=== PATIENT | male | born 1965 | race Caucasian/White ===

== ENCOUNTER 2016-09-02 08:04 | Inpatient (IN) ==
[2016-09-02] MEDS ORDERED: predniSONE 20 MG TABLET PO ONE (08:26)
--- NOTE | 2016-09-02 08:35 | History & Physical Report ---
Date of Encounter: 09/02/16 Time of Encounter: 08:34 24 Hour HP Update - Instructions Instructions: If the History and Physical is less than 30 days old and was completed prior to A.M. admission and or procedure and has NOT been updated on calendar day of procedure please complete this update prior to performing procedure. - Update Patient reports changes in Medical Condition: No Changes in assessment/condition: No Changes in Medication: No Preop tests/diagnostics Reviewed: Yes Surgery Remains Indicated: Yes Consent for Planned Operative Procedure(s) Verified: Yes - Pre-Operative Checklist Preoperative Checklist Indicated: Yes Prophylactic Antibiotic Ordered: No Home Medications Include Beta Dacia: Yes Beta Dacia Taken Today (Day of Surgery): Yes Beta Dacia Taken Yesterday (Day Prior to Surgery): Yes Is VTE Prophylaxis Indicated?: NO
--- NOTE | 2016-09-02 08:37 | Pre-Sedation Evaluation ---
Pre-sedation evaluation - Pre-sedation checklist Date of procedure: 09/02/16 Procedure: [facility] Recent Vitals: Vitals will be reviewed prior to the procedure. H&P (including ROS) documented in medical record: Yes Previous reaction to sedatives/anesthetics: No Dietary Status: NPO after Midnight Airway Assessment: Patient can open mouth completely, TMJ function normal, Micrognathia (under-bite, receding chin) absent, Neck with adequate range of motion Possible difficult airway: No ASA Classification *see protocol: CLASS II-Mild systemic disease Plan of Care: Pt appropriate candidate for procedure/moderate/conscious sedation , Risks/benefits of procedure/sedation discussed w/ patient/family, If not NPO; Risk of intake outweiged by necessity to perform procedure
[2016-09-02] MEDS: 0.9 % Sodium Chloride 1,000 ML IVC SCH (08:46)
[2016-09-02] MEDS ORDERED: Verapamil 5 MG/2 ML VIAL ONE (10:27)
[2016-09-02] MEDS ORDERED: Heparin 1,000 UNITS/500 mL NS 500 ML ONE (10:28)
[2016-09-02] MEDS ORDERED: *HR* Heparin 10,000 UNIT/10 ML VIAL ONE (10:28)
[2016-09-02] MEDS ORDERED: 0.9 % Sodium Chloride 1,000 ML ONE (10:28)
[2016-09-02] MEDS ORDERED: Nitroglycerin 1,000 MCG/10 ML VIAL IV ONE (10:28)
[2016-09-02] MEDS ORDERED: *HR* Midazolam HCl 2 MG/2 ML VIAL ONE (10:59)
[2016-09-02] MEDS ORDERED: *HR* FentaNYL (PF) 100 MCG/2 ML VIAL ONE (11:02)
--- NOTE | 2016-09-02 11:43 | Invasive Diagnostic Lab Proc ---
Name: Milan Dejesus Date of Study: 09/02/2016 Date: 1965 Ht: 70.0in Medical Record#: [id number] Age: 51 Wt: 213.00lb Gender: Male BSA: 2.14 Order #: [id number] BMI: 30.56 Physicians Procedure Physician: Genesis Blue MD Referring MD: Referring MD: Staff Name Position Time In Laura Chaney RN Pre-Op Nurse 08:00 AM Cindy Dodd RT Pre op 08:00 AM Alvin Biswas RN Pre-Op Nurse 08:00 AM Cindy Dodd RT Monitor 10:46 AM Maureen Mitchell RT (R) Scrub 10:46 AM Robert Vela RN Rn Trauma 10:46 AM Ruthie Gutiérrez RN Nurse 10:42 AM Ruthie Gutiérrez RN Nurse 10:53 AM Indications Indication Abnormal Test - Stress Procedures Performed Procedure L HRT ARTERY/VENTRICLE ANGIO Pre-Procedure Checklist Informed consent is complete signed and on chart. H\\T\\P is on chart. ID band is on and ID verified with patient. Patient NPO for procedure The procedure was described for the patient and questions were answered. Blood Pressure: 125/82 ECG is on chart. Rhythm: NSR Plan of Care Patient will tolerate the procedure without complications. Adequate level of comfort will be maintained. Hemodynamics will remain stable Patient will recover from procedure without complications. Respiratory function will be maintained. Cardiac rhythm will remain stable. Patient temperature will be maintained. Patient and/or family have verbalized understanding of the procedure. Patient Education Chief Complaint/Reason for Test: Cardiac Cath Developmental Category: Adult (18-64 years) Developmentally Appropriate for Age: Yes Learning Barriers: None Education Needs: Procedure Education Method: Verbal Information Taught: Cardiac Cath Educational Evaluation: Able to repeat information Intravenous Access Time IV Size Location DC'd Fluid/Drip Rate Units RN 09:00 AM Started with 20g 1 1/4" Rt Antecubital 0.9NaCl 25 ml/hr Cindy Dodd RT Allergies Contrast Media, Iodine Related atorvastatin Vital Signs Time BP (mmHg) HR (bpm) O2 Sat. RR (bpm) LOC 09:01 AM 125 / 82 79 95 % 16 5 = Fully awake and oriented or at pre-proc level 10:53 AM / % 5 = Fully awake and oriented or at pre-proc level 10:53 AM / % 4 = Oriented but drowsy 11:09 AM / % 4 = Oriented but drowsy 10:55 AM 142 / 82 260 99 % 13 11:00 AM 140 / 76 80 99 % 23 11:05 AM 124 / 77 87 95 % 21 11:10 AM 123 / 77 85 96 % 17 11:15 AM 130 / 75 85 97 % 21 11:20 AM 136 / 79 83 % 15 Procedural Medications Time Medication Dose Units Method Given By 10:53 AM Oxygen 2 L/min nasal cannula Ruthie Gutiérrez RN 10:53 AM Versed 1 mg Intravenous Ruthie Gutiérrez RN 10:53 AM Benadryl 50 mg Intravenous Ruthie Gutiérrez RN 11:02 AM Lidocaine 2% 1 ml Subcutaneous Genesis Blue MD 11:02 AM Heparin 4000 units Nitroglycerin 200 mcg Verapamil 2.5 mg Intraarterial Genesis Blue MD 11:00 AM Fentanyl 25 mcg Intravenous Robert Vela RN ASA Classification: CLASS II- Mild systemic disease (i.e. well-controlled diabetes, hypertension, asthma, cigarette smoking) Janki Score Preprocedure Postprocedure Activity 2- Moves 4 extremities sustained head lift Activity 2- Moves 4 extremities sustained head lift Circulation 2- SBP +/= 20 points of pre-anesthetic level Circulation 2- SBP +/= 20 points of pre-anesthetic level Consciousness 2- Awake and alert oriented x 3 Consciousness 2- Awake and alert oriented x 3 O2 Saturation 2- Able to maintain O2 satruation of 92% on room air O2 Saturation 2- Able to maintain O2 satruation of 92% on room air Respiratory 2- Able to deep breathe and cough well Respiratory 2- Able to deep breathe and cough well Total Score 10 Total Score 10 Contrast Agent: Isovue Diagnostic Contrast: 63 ml Total Contrast: 63 ml Fluoro Dose: 467 mGy Procedure Log Time Note Enter By 09:02 AM Risk for fall? Yes, Medications (change in amt./frequency,newly prescribed,potential combinations) scoates 09:02 AM Evidence of mental, physical, or emotional abuse? No scoates 09:02 AM Does patient have suicidal ideations? No scoates 10:45 AM CathStat 10:46 AM Pt arrived to slab stripper 2 at 10:46 [email or web address] 10:46 AM Case Delayed Previous case ran long kk 10:46 AM Cindy Dodd RT Position: Monitor Time in: : 10:46 AM Maureen Mitchell RT (R) Position: Scrub Time in: : 10:46 AM Robert Vela RN Position: Rn Trauma Time in: :ner 10:46 AM Patient charges- Angio tray pack, Navilyst 3mm J, Pulse Oximetry and ACIST tubing and transducer kkner 10:46 AM IV Supplies used: J loop Angio Cath. kk 10:46 AM Hair removed from procedure site in holding area using clippers. Right wrist prepped with Chloraprep by Alvin Bsiwas then patient draped. Skin intact. kk 10:46 AM Ruthie Gutiérrez RN Position: Nurse Time in: 10:47 AM Physician arrived 10:47 10:47 AM ASA Class CLASS II- Mild systemic disease (i.e. well-controlled diabetes, hypertension, asthma, cigarette smoking) [email or web address] 10:47 AM Meet and greet completed kk 10:47 AM Sign in performed according to hospital policy. kk 10:47 AM Procedure start 10: 10:53 AM Time: 10:53 Oxygen on at 2 L/min per nasal cannula by Ruthie Gutiérrez RN 10:53 AM Time: 10:53 Versed 1 mg Intravenous Given by Ruthie Gutiérrez RN 10:53 AM Time: 10:53 Benadryl 50 mg Intravenous Given by Ruthie Gutiérrez RN [facility] 10:53 AM Ruthie Gutiérrez RN Position: Nurse Time in: : 10:53 AM Time: 10:53 Patient comfortable and pain free: Yes 10:53 AM Time: 10:53LOC: 5 = Fully awake and oriented or at pre-proc level kkner 10:54 AM Clinical Presentation: Non-STEMI kkall 10:54 AM Vitals capture started with the following parameters, Patient=Adult, Interval=5 min, Initial Znhuuukn=835 mmHg, Deflation Rate=5 mmHg, Cuff placed on Right Arm 10:55 AM ND=007 bpm, BEDY=136/82 mmhg, SpO2=99 %, Resp=13 B/min 11:00 AM HR=80 bpm, XUUR=925/76 mmhg, SpO2=99.0 %, Resp=23 B/min, Comment=sr 11:00 AM Time: 11:00 Fentanyl 25 mcg Intravenous Given by Robert Vela RN 11:02 AM Time out performed according to hospital policy : Time: :02 1 ml Lidocaine 2% to right radial Subcutaneous [facility] Access obtained by percutaneous puncture. 6Fr 10cm Terumo Glidesheath sheath placed in right Radial artery. [id number] : AM Time: :02 Patient given 4,000 units Heparin, 200 mcg Nitroglycerin, and 2.5 mg Verapamil Intraarterial by Genesis Blue MD :02 AM 5Fr TIG catheter inserted over the wire [facility] :03 wire removed : LCA angiography performed in multiple views. :04 Recorded Pressure: Ao, HR=90, Condition=Condition 1 (Aorta) Ao 75/63/69 11:05 AM TIG repositioned into RCA 11:05 AM HR=87 bpm, JOLJ=649/77 mmhg, SpO2=95.0 %, Resp=21 B/min, Comment=sr 11:06 AM wire reinserted :07 AM Pressure channel 1 zeroed. 11:07 AM Catheter removed : AM 5Fr Pigtail catheter inserted over the wire [facility] : wire removed : AM Catheter selectively placed in left ventricle :08 AM Bolus angiogram of left Ventricle complete: 8 ml/sec for a total of 24 mls :08 AM Recorded Pressure: LV, HR=88, Condition=Condition 1 (Left Ventricle) LV 85/10/9 11:08 AM Time: 10:53 Patient comfortable and pain free: Yes 11:09 AM Time: 10:53LOC: 4 = Oriented but drowsy kkner 11:09 AM Recorded Pressure: LV, Ao, HR=87, Condition=Condition 1 (Left Ventricle) LV 95/9/8, (Aorta) Ao 91/37/69 11:09 AM Catheter removed 11:10 AM 5Fr 3DRC catheter inserted over the wire [id number] 11:10 AM wire removed 11:10 AM HR=85 bpm, BVGO=889/77 mmhg, SpO2=96.0 %, Resp=17 B/min 11:11 AM RCA angiography performed in multiple views. 11:12 AM Recorded Pressure: Ao, HR=82, Condition=Condition 1 (Aorta) Ao 84/70/77 11:14 AM Lesion found in Proximal RCA. Pre Stenosis: 90 Pre JOURDAN Flow: 11:14 AM Lesion found in Mid RCA. Pre Stenosis: 100 Pre JOURDAN Flow: 11:14 AM wire and catheter removed 11:15 AM HR=85 bpm, TOUX=249/75 mmhg, SpO2=97.0 %, Resp=21 B/min 11:16 AM Procedure completed at 11:16 :16 AM Sign out completed: Radiation Dose 467.48 mGy Fluoro Time: 4.5 Isovue 370 - 200ml contrast 63.8 ml given by Genesis Blue MD. Complications: NoneConfirmed administered medications: Yes 11:16 AM Isovue 370 - 200ml,1 Bottle(s) used. kk 11:17 AM 13 ml air in Vasc Band. kk 11:17 AM Post ECG NSR :17 AM Post Blood Pressure 130/75 :17 AM 11:17 Post Pulses Rt Radial 2+ 11:17 AM Information taught Cardiac Cath and Vasc Band kk 11:20 AM HR=83 bpm, DQPA=336/79 mmhg, Resp=15 B/min 11:24 AM Time: 11:08 Patient comfortable and pain free: Yes :24 AM Time: 11:09LOC: 4 = Oriented but drowsy kk 11:[address] Ovalle consulted kkner 11:25 AM Education needs Procedure, Plan of Care, and Responsibilities of Patient in Care [email or web address] 11:25 AM Learning barriers :None kk 11:25 AM Education Methods Verbal kk 11:25 AM Education evaluation Able to repeat information kk 11:25 AM Site status No bleeding/hematoma - Rt Wrist as reported by Maureen Mitchell RT (R) at 11:25 kkallner 11: AM Plavix, Effient or Brilinta given No kkallner 11:26 AM Delay to floor No kkall 11:26 AM Patient out of room: 11:26 kkallner 11:29 AM Family placed in consult room. kk 11:29 AM Report given to ANNUAL CAMPAIGN MANAGER Pt taken to ICU Room #4. 11:29 kkallner 11:29 AM Complications: None kk 11:30 AM Fluoro Time: 4.5 ner 11:30 AM Isovue 370 - 200ml contrast 63 ml given by Genesis Blue MD. 11:30 AM Radiation Dose 467.48 mGy kk 11:31 AM Lesion found in Proximal LAD. Pre Stenosis: 100 Pre JOURDAN Flow: kk 11:31 AM Lesion found in 1st Diagonal. Pre Stenosis: 90 Pre JOURDAN Flow: 11:31 AM Lesion found in Ramus. Pre Stenosis: 30 Pre JOURDAN Flow: kkall 11:32 AM Proximal Left Anterior Descending Coronary Artery with 100% stenosis. If graft is supplying this territory, % stenosis. kkallner 11:32 AM Mid/Distal Left Anterior Descending Coronary Artery and diagonal branches with 90% stenosis. If graft is supplying this area, % stenosis kkallner 11:32 AM Circumflex, Obtuse Marginal, Left Posterior Descending, and Left Posterolateral Coronary Arteries with 70 % stenosis. If graft is supplying this area, % stenosis kkallner 11:32 AM Right Coronary, Right Posterior Descending Arteries with Right Posterolateral and Acute Marginal branches with 100 % stenosis. If graft is supplying this area, % stenosis kkallner 11:32 AM Ramus with 30% stenosis. If graft is supplying this area, % stenosis kkall 11:33 AM Lesion found in Proximal Circumflex. Pre Stenosis: 70 Pre JOURDAN Flow: [facility] Complications Complication None None Hemodynamics Pressures Site Systolic/A Wave Diastolic/V Wave Mean AO 75 63 69 LV 85 10 9 LV 95 9 8 AO 91 37 69 AO 84 70 77 Post Procedure Information Blood Pressure: 130/75 mmHg Rhythm: NSR Post procedural instructions were given Surgery consult for CABG Site Checks Time Location Status Staff Sheath In? Note 11:25 AM Rt Wrist No bleeding/hematoma Maureen Mitchell RT (R) Pulses Time Site Pre-Procedure Post-Procedure Note 09/02/2016 9:00:00 AM Bilateral DP 2+ 09/02/2016 9:00:00 AM Bilateral PT 1+ 09/02/2016 9:00:00 AM Bilateral radial 2+ 11:17:00 AM Rt Radial 2+ Updated by Cindy Dodd RT (R) on 09/02/2016 11:38:23 AM electronically signed on 09/02/2016 11:38:48 AM with status of Final
--- NOTE | 2016-09-02 11:55 | Procedure Note ---
Date of procedure: 09/02/16 Pre-op diagnosis: Untabe angina Post-op diagnosis: other (Severe 3 vessels CAD) Procedure: LHC revealed occluded proximal LAD and Diagonal I stents, occluded mid RCA, and 70% ostial Circ with a patent large Ramus Intermedius. Normal LVEF despite apical and inferobasal hypokinesis. Left to right collaterals to the right PDA noted. Recommendation: CT surgery consultation for possible bypass. Anesthesia: local Surgeon: Genesis Blue Jr Pathology: none sent Condition: other (Guarded) Disposition: floor
--- NOTE | 2016-09-02 13:30 | Cardiothoracic Consult Note ---
Date of Encounter: 09/02/16 Time of Encounter: 13:22 Assessment and Plan (1) CAD (coronary artery disease) Current Visit: Yes Status: Acute The patient is a 51-year-old hypertensive man with known CAD and hypercholesterolemia. The patient's initial cardiac intervention occurred in 2005 at which time he underwent PCI and stent placements in both the LAD and ramus intermediate. He did well until the last 6 months, during which time he has developed progressive shortness of breath, dyspnea on exertion, decreased exercise tolerance and easy fatigability. He underwent an exercise stress test as part of a cardiac clearance for an elective right rotator cuff repair. This was positive for ischemia and the subsequent cardiac catheterization revealed severe 3 vessel CAD. The patient has been recommended for CABG. I concur with this recommendation. The patient understands the procedure, alternatives, benefits, and risk of the operation. He gives his informed consent. Currently the patient is on fish oil this will be stopped for 3-4 days prior to CABG. The operation will be tentatively scheduled for early next week. The assessment and plan as outlined above was discussed with the patient and/or family members who expressed understanding and agreement. All questions were answered. Qualifiers: Coronary Disease-Associated Artery/Lesion type: [place] artery [place] vs. transplanted heart: semin[place] heart Associated angina: with other forms of angina Qualified Code(s): I25.118 - Atherosclerotic heart disease of [place] coronary artery with other forms of angina pectoris - History of Present Illness Consult date: 09/02/16 Requesting physician: Kassie Ovalle Consult reason: CABG evaluation. Chief complaint: Positive exercise stress test. History of present illness: Mr. Dejesus is a 51 year old hypertensive man with known CAD and hypercholesterolemia. His cardiac history dates back to 2005 at which time he experienced acute onset of substernal chest pain, diaphoresis, and nausea. He was determined to have an acute NSTEMI and underwent cardiac catheterization. At this procedure he was found to have high-grade lesions in both his LAD and ramus intermedius. This required PCI and stent placement and the patient did well until the last several months. Beginning in February 2016 the patient describes progressive shortness of breath, dyspnea on exertion, decreased exercise tolerance, and increased fatigue. During this time the patient denies any substernal chest pain, pressure, or tightness. He was scheduled for an elective right rotator cuff repair and his virtual customer assistant, Dr. Gagan Richards, recommended an exercise stress test for cardiac clearance. The stress test was performed August 26, 2016. During the stress test a she was able to exercise for 6 minutes and 44 seconds prior to stopping due to excessive dyspnea and fatigue. The exercise ECG was positive for ischemia with ST depression noted in the anterolateral and inferior leads. The nuclear portion revealed a large reversible defect involving the anterior wall. He was then recommended for cardiac catheterization. This study performed today revealed severe 3 vessel CAD. In particular, the patient has a completely occluded proximal LAD which fills distally via left to left collaterals, a 70% ostial LCx lesion, and a completely occluded proximal RCA which fills distally via [id number] collaterals. The patient has been recommended for CABG. Past Med Surg Social Fam HX - Past Medical History Medical history: coronary artery disease, GERD, hyperlipidemia, hypertension, myocardial infarction, SVT Psychiatric history: no psych history - Past Surgical History Surgical History: angioplasty/stent, other (Lumbar laminectomy.) - Social History Smoking Status: Never smoker Smokeless Tobacco Status: No Alcohol use: rarely Drug use: none Occupational status: employed Current living situation: Home - Independent Activity Level: Independent ambulation Recent Out of Country Travel Within the Last 8 Weeks: No Exposure or Possible Exposure to Illness During Travel: No Medications and Allergies Aspirin 81 mg PO DAILY 03/24/16 [History] Metoprolol [Lopressor] 50 mg PO DAILY 03/24/16 [History] [place]-3/Dha/Epa/Fish Oil [Fish Oil] 1,000 mg PO BID 03/24/16 [History] Omeprazole [PriLOSEC] 20 mg PO DAILY 03/24/16 [History] Pravastatin Sodium [Pravachol] 80 mg PO DAILY 03/24/16 [History] Isosorbide MONOnitrate [Isosorbide Mononitrate] 15 mg PO DAILY 09/02/16 [History ] Meloxicam 15 mg PO DAILY 09/02/16 [History] Multivitamin [Multivitamins] 1 each PO DAILY 09/02/16 [History] Allergies atorvastatin [From Lipitor] Allergy (Verified 03/24/16 06:22) Joint Pain Iodinated Contrast Media - Oral and Allergy (Verified 03/24/16 06:22) Anaphylaxis All Systems Review: A 10-system review of systems was performed and is negative for pertinent findings except as documented above in the HPI. Physical Examination Vital Signs, Last 4 Hours Temp Pulse Resp BP Pulse Ox 09/02/16 11:49 82 09/02/16 11:45 98.5 F 83 12 124/78 94 L General: Conversant, No Apparent Distress HEENT: Atraumatic, Normocephaly, Trachea midline Neck: No JVD, Normal carotid pulses Cardiac: Reg Rate and Rhythm, Normal S1 and S2, No Murmur Lungs: Normal Breath Sounds, No Wheeze, Rales, Rhonchi Neuro: Alert and responsive, No focal deficits noted Vascular: Normal capillary refill Abdomen: Soft, Non-tender Skin: No rashes noted on visualized skin Musculoskeletal: No Chest Wall Tenderness Extremities: No Clubbing, No Cyanosis, No Edema, Normal Pulses Consult Discharge Plan - Plan Referrals: Erica Blackburn, FACILITY SERVICE ASSOCIATE [Primary Care Provider] -
[2016-09-02] MEDS ORDERED: ceFAZolin 2,000 MG in D5% in Water 100 ML IVPB ONE (13:34)
--- NOTE | 2016-09-02 13:52 | Invasive Diagnostic Lab ---
Name: Milan Dejesus Date of Study: 09/02/2016 Date: 1965 Ht: 177.8 cm /70.0 in Medical Record#: [id number] Age: 51 Wt: 96.6 kg / 213.00 lb Account/Order#: [id number] Gender: Male BSA: 2.14 Order #: [id number] Fluoro Dose: 467 mGy BMI: 30.56 Procedure Physician: Genesis Blue MD Referring MD: Referring MD: Procedures Performed: LEFT HEART CATH Indications: Abnormal Test-Stress, unstable angina Impressions: There is severe three vessel coronary artery disease. The left ventricle is normal and has moderate inferobasal and apical hypokinesis with normal EF 55%. Recommendations: Suggest patient have urgent coronary artery bypass surgery. History/Risk Factors: ablation 2005 Hypertension Dyslipidemia Previous PCI Date: 09/04/2005 Procedure: Access obtained in the right Radial artery by percutaneous puncture. Complications: None Contrast: Isovue, 63ml Hemodynamics: Pressures Site Systolic/ A Wave Diastolic/ V Wave End Diastolic/ Mean HR AO 75 63 69 90 LV 85 10 9 88 LV 95 9 8 87 AO 91 37 69 89 AO 84 70 77 82 LV Ventriculography Ejection Method: LV Gram Ejection Fraction: 55% Wall Motion: BROWN Anterobasal Normal Anterolateral Normal Apical: hypokinesis Inferoapical Normal Inferobasal Akinesis Coronary Dominance: Right Lesion Findings/Interventions * Left Main Coronary Artery The LMCA is angiographically free of disease. * Left Anterior Descending There is a 100% proximal edge in-stent restenosis in the Proximal LAD. There is severe in stent stenosis in the 1st Diagonal (small vessel). Stents placed from a prior procedure in the proximal LAD and Diagonal I are occluded. * Circumflex There is a 70% ostial stenosis in the Circumflex. * Ramus There is a 30% stenosis in the proximal Ramus. The Ramus is large in size. * Right Coronary Artery There is a 100% stenosis in the Mid RCA. The distal RCA/PDA filled by collaterals which feed from left to right. Updated by RT Jerry (R) on 09/02/2016 11:37:42 AM Genesis Blue MD electronically signed on 09/02/2016 1:48:29 PM with status of Final
[2016-09-02] MEDS: Aspirin 81 MG TAB.CHEW PO SCH (17:00)
[2016-09-02] MEDS: Metoprolol XL (24 HR) Succ 50 MG TAB.ER.24H PO SCH (17:01)
[2016-09-02] MEDS: *HR* Enoxaparin 100 MG/ML SYRINGE SQ SCH (17:03)
[2016-09-03] MEDS: 0.9 % Sodium Chloride 1,000 ML IVC SCH ×2 (02:00→23:41)
[2016-09-03] MEDS: *HR* Enoxaparin 100 MG/ML SYRINGE SQ SCH ×2 (05:32→16:42)
[2016-09-03 07:07] LABS: Basophils # 0.1 K/mcL (0.0-0.2); Basophils % 0.5 %; Eosinophils # 0.1 K/mcL (0.0-0.6); Eosinophils % 0.8 %; Hematocrit 40.3 % (37.5-50.1); Hemoglobin 13.4 g/dL (12.9-16.9); Immature Granulocytes % 0.7 % (0-4); Lymphocytes # 2.1 K/mcL (0.6-4.6); Lymphocytes % 19.9 %; Mean Corpuscular HGB Conc 33.3 g/dL (31.6-35.5); Mean Corpuscular Volume 84.3 fL (83.0-100.0); Mean Platelet Volume 10.7 fL (9.4-12.4); Monocytes # 0.9 K/mcL (0.0-1.3); Monocytes % 8.9 %; Platelet Count 241 K/mcL (140-400); Red Blood Count 4.78 M/mcL (4.19-5.50); Segmented Neutrophils % 69.2 %
[2016-09-03 07:30] LABS: BUN/Creatinine Ratio 23 (6-26); Blood Urea Nitrogen 19 mg/dL (8-26); Calcium 8.8 mg/dL (8.6-10.8); Carbon Dioxide 25 mEq/L (19-29); Chloride 104 mEq/L (98-109); Chol/HDL Ratio 7.9 (0-4.9); Cholesterol 236 mg/dL (< 200); Glucose 188 mg/dL (70-99); HDL Cholesterol 30 mg/dL (40-59); Osmolality,Calculated 291 (280-300); Potassium 3.9 mEq/L (3.5-4.5); Sodium 137 mEq/L (136-145); Triglycerides 404 mg/dL (< 150); eGFR For African Americans > 60 (> 60); eGFR For Non-African Americans > 60 (> 60)
[2016-09-03 07:47] LABS: Hemoglobin A1C 7.9 %
[2016-09-03 07:55] LABS: Neutrophils # 7.3 K/mcL (1.6-8.9)
[2016-09-03] MEDS: Aspirin 81 MG TAB.CHEW PO SCH (08:23)
[2016-09-03] MEDS: Metoprolol XL (24 HR) Succ 50 MG TAB.ER.24H PO SCH (08:23)
[2016-09-03] MEDS: (Pravastatin Sodium [Pravachol] 80 MG) PO SCH (08:25)
--- NOTE | 2016-09-03 08:39 | Cardiothoracic Progress Note ---
Date of Encounter: 09/03/16 Time of Encounter: 08:37 - Assessment and plan (1) CAD (coronary artery disease) Current Visit: Yes Status: Acute The patient is a 51-year-old hypertensive man with known CAD and hypercholesterolemia. The patient's initial cardiac intervention occurred in 2005 at which time he underwent PCI and stent placements in both the LAD and ramus intermediate. He did well until the last 6 months, during which time he has developed progressive shortness of breath, dyspnea on exertion, decreased exercise tolerance and easy fatigability. He underwent an exercise stress test as part of a cardiac clearance for an elective right rotator cuff repair. This was positive for ischemia and the subsequent cardiac catheterization revealed severe 3 vessel CAD. The patient has been recommended for CABG. I concur with this recommendation. The patient understands the procedure, alternatives, benefits, and risk of the operation. He gives his informed consent. Currently the patient is on fish oil this will be stopped for 3-4 days prior to CABG. The operation will be tentatively scheduled for early next week. The assessment and plan as outlined above was discussed with the patient and/or family members who expressed understanding and agreement. All questions were answered. Qualifiers: Coronary Disease-Associated Artery/Lesion type: [place] artery [place] vs. transplanted heart: [place] heart Associated angina: with other forms of angina Qualified Code(s): I25.118 - Atherosclerotic heart disease of [place] coronary artery with other forms of angina pectoris - Subjective Interval history: The patient is resting comfortably in his hospital bed. He has had no chest pain or shortness of breath. Vital Signs, Last 4 Hours Temp Pulse Resp BP Pulse Ox 09/03/16 08:00 71 09/03/16 06:34 97.6 F 71 16 128/88 96 Clinical Data, last 8 Hours Output, Urine Amount 250 Weight 09/01/16 09/02/16 09/03/16 23:59 23:59 23:59 Weight 94.404 kg 94.3 kg - Physical Examination General: Conversant, No Apparent Distress Neck: No JVD, Normal carotid pulses Cardiac: Reg Rate and Rhythm, Normal S1 and S2, No Murmur Lungs: Normal Breath Sounds, No Wheeze, Rales, Rhonchi Neuro: Alert and responsive, No focal deficits noted Vascular: Normal capillary refill Musculoskeletal: No Chest Wall Tenderness Extremities: No Clubbing, No Cyanosis, No Edema, Normal Pulses - Labs 09/03/16 06:15 09/03/16 06:15 Lab Results, Last 24 hours 09/03/16 09/03/16 06:15 06:15 WBC 10.6 D Hgb 13.4 Hct 40.3 Plt Count 241 Sodium 137 Potassium 3.9 Chloride 104 Carbon Dioxide 25 BUN 19 Creatinine 0.81 Glucose 188 H Calcium 8.8 Consult Discharge Plan - Plan Referrals: Erica Blackburn, [employer]M [Primary Care Provider] -
--- NOTE | 2016-09-03 10:03 | Cardiology Progress Note ---
Date of Encounter: 09/03/16 Time of Encounter: 10:01 Assessment and Plan (1) CAD (coronary artery disease) Current Visit: Yes Status: Acute Pt has been recommended for CABG for his severe 3 vessel CAD. He was on fish oil, since been stopped--needs stopped for 3-4 days prior to CABG. The operation will be tentatively scheduled for early next week per Dr. Ovalle. Pt denies any chest pain or dyspnea. Continue ASA, BB, Lovenox. Intolerant to statin drugs--joint pain. EF preserved on echo 08/31. Will continue to monitor until pt is taken to CABG. Labs and vitals stable. Right radial access site healing well. No bleeding, hematoma or ecchymosis noted. Qualifiers: Coronary Disease-Associated Artery/Lesion type: [place] artery [place] vs. transplanted heart: [place] heart Associated angina: with other forms of angina Qualified Code(s): I25.118 - Atherosclerotic heart disease of [place] coronary artery with other forms of angina pectoris Discussion w patient/family: The assessment and plan as outlined above was discussed with the patient and/or family members who expressed understanding and agreement. All questions were answered. Thank you for involving us in the care of your patient. Please call with any questions. I will discuss all the above with Dr. Radu Singh and make changes as necessary. Subjective Principal diagnosis: CAD Interval history: Outpt [facility] yesterday revealed severe 3 vessel CAD. He has a completely occluded proximal LAD which fills distally via left to left collaterals, a 70% ostial LCx lesion, and a completely occluded proximal RCA which fills distally via left -to-right collaterals. The patient has been recommended for CABG. Seen and evaluated by Dr. Ovalle--tentatively planned for early next week. Pt denies chest pain or dyspnea overnight. Objective Vital Signs, Last 4 Hours Temp Pulse Resp BP Pulse Ox 09/03/16 08:00 71 09/03/16 06:34 97.6 F 71 16 128/88 96 Vital Signs Temp Pulse Resp BP Pulse Ox 09/03/16 08:00 71 09/03/16 06:34 97.6 F 71 16 128/88 96 09/03/16 04:18 97.4 F L 74 18 121/81 95 09/03/16 00:07 97.6 F 87 17 129/74 95 09/02/16 21:18 98.2 F 89 16 103/66 94 L 09/02/16 14:53 98.7 F 86 19 133/78 95 09/02/16 14:41 84 23 132/88 95 09/02/16 12:30 81 14 125/79 94 L 09/02/16 12:15 80 15 124/78 93 L 09/02/16 11:49 82 09/02/16 11:45 98.5 F 83 12 124/78 94 L Intake and Output 09/02/16 09/03/16 09/03/16 23:59 07:59 15:59 Intake Total 120 / 120 1400 / 1400 360 / 360 Output Total 550 / 550 225 / 225 250 / 250 Balance -430 / -430 1175 / 1175 110 / 110 Intake: IV Fluids 1000 / 1000 0.9 % Sodium Chloride 1, 1000 / 1000 000 ML @ 50 mls/hr IVC . Q20H [facility] Rx#:[id number] Oral 120 / 120 400 / 400 360 / 360 Output: Urine 550 / 550 225 / 225 250 / 250 Other: Meal Dinner Breakfast Percent of Meal Consumed 95% 100% Weight 94.3 kg Patient Weight 09/03/16 23:59 Weight 94.3 kg General: Conversant, No Apparent Distress HEENT: Atraumatic, Normocephaly, Mucus Membranes Moist Neck: No JVD, Normal carotid pulses Cardiac: Reg Rate and Rhythm, Normal S1 and S2, No Murmur Lungs: Normal Breath Sounds, No Wheeze, Rales, Rhonchi Neuro: Alert and responsive, No focal deficits noted Abdomen: Soft, Non-Tender Skin: Other (right radial access site healing well--no bleeding, hematoma or ecchymosis noted. Pulses 2+ palpable and symmetrical.) Musculoskeletal: No Chest Wall Tenderness Extremities: No Clubbing, No Cyanosis, No Edema, Normal Pulses Results 09/03/16 06:15 09/03/16 06:15 Lab Results 09/03/16 09/03/16 06:15 06:15 WBC 10.6 D Hgb 13.4 Hct 40.3 Plt Count 241 Sodium 137 Potassium 3.9 Chloride 104 Carbon Dioxide 25 BUN 19 Creatinine 0.81 Glucose 188 H Calcium 8.8 Short CBC 09/03/16 Range/Units 06:15 WBC 10.6 D (4.3-11.1) K/mcL Hgb 13.4 (12.9-16.9) g/dL Hct 40.3 (37.5-50.1) % Plt Count 241 (140-400) K/mcL Neutrophils # 7.3 (1.6-8.9) K/mcL BMP 09/03/16 Range/Units 06:15 Sodium 137 (136-145) mEq/L Potassium 3.9 (3.5-4.5) mEq/L Chloride 104 (98-109) mEq/L Carbon Dioxide 25 (19-29) mEq/L BUN 19 (8-26) mg/dL Creatinine 0.81 (0.72-1.25) mg/dL Glucose 188 H (70-99) mg/dL Calcium 8.8 (8.6-10.8) mg/dL Impressions Chest X-Ray 09/02/16 13:34 IMPRESSION: No definite acute cardiopulmonary disease. Airspace opacity and blunting of the left costophrenic angle is similar from 2006, and likely secondary to pleuroparenchymal scarring. D/ / Cole Wren MD / Cole Wrne MD Interpreting Provider: Cole Wren MD Active Medications Aspirin (Aspirin) 81 mg PO DAILY KATHLEEN Stop: 03/04/17 12:01 Last Admin: 09/03/16 08:23 Dose: 81 mg Chlorhexidine Gluconate (Chlorhexidine Rinse) 15 ml MM BID KATHLEEN Stop: 09/07/16 09:01 Enoxaparin Sodium (Lovenox) 100 mg 1 mg/kg (100 mg) SQ Q12HR KATHLEEN PRN Reason: Protocol Stop: 03/04/17 18:01 Last Admin: 09/03/16 05:32 Dose: 100 mg Sodium Chloride (0.9 % Sodium Chloride) 1,000 mls @ 50 mls/hr IVC .Q20H KATHLEEN Stop: 03/04/17 08:31 Last Admin: 09/03/16 02:00 Dose: 50 mls/hr Cefazolin Sodium 2,000 mg/ (Dextrose) 100 mls @ 200 mls/hr IVPB PREOP ONE PRN Reason: Protocol Stop: 09/07/16 06:29 Metoprolol Succinate (Toprol Xl) 50 mg PO DAILY [facility] Stop: 03/04/17 12:01 Last Admin: 09/03/16 08:23 Dose: 50 mg Omeprazole (Prilosec) 20 mg PO DAILY [facility] PRN Reason: Protocol Stop: 03/04/17 12:01 Last Admin: 09/03/16 08:23 Dose: 20 mg Pharmacy Profile Note (Patient Taking Own Medication) 0 each PO DAILY [facility] Stop: 03/05/17 09:01 Last Admin: 09/03/16 08:25 Dose: 80 each - Imaging and Cardiology Chest Xray: report reviewed Cardiac cath: report reviewed - EKG Interpretation EKG results cardiology: other (12 hour tele AVG HR 73, SR, no significant pauses or arrhythmias) Consult Discharge Plan - Plan Referrals: Erica Blackburn, PRODUCTS MECHANICAL DESIGN ENGINEER [Primary Care Provider] -
[2016-09-04] MEDS: *HR* Enoxaparin 100 MG/ML SYRINGE SQ SCH ×2 (06:05→17:28)
[2016-09-04] MEDS: Metoprolol XL (24 HR) Succ 50 MG TAB.ER.24H PO SCH (08:56)
[2016-09-04] MEDS: Aspirin 81 MG TAB.CHEW PO SCH (08:56)
--- NOTE | 2016-09-04 10:20 | Cardiology Progress Note ---
Date of Encounter: 09/04/16 Time of Encounter: 08:00 Assessment and Plan (1) CAD (coronary artery disease) Current Visit: Yes Status: Acute Pt has been recommended for CABG for his severe 3 vessel CAD. He was on fish oil, since been stopped--needs stopped for 3-4 days prior to CABG. The operation will be tentatively scheduled for early next week per Dr. Ovalle. Pt denies any chest pain or dyspnea.Denies questions. Continue ASA, BB, Lovenox. Continue pravastatin. taking previously and tolerated well. EF preserved on echo 08/31. Will continue to monitor until pt is taken to CABG. Labs and vitals stable. Right radial access site healing well. No bleeding, hematoma or ecchymosis noted. Check AM labs. Qualifiers: Coronary Disease-Associated Artery/Lesion type: [place] artery [place] vs. transplanted heart: [place] heart Associated angina: with other forms of angina Qualified Code(s): I25.118 - Atherosclerotic heart disease of [place] coronary artery with other forms of angina pectoris (2) Diabetes Current Visit: Yes Status: Acute New diagnosis of DM type II this admission. HGB A1C 7.9. Hospitalist consulted. Qualifiers: Diabetes mellitus type: type 2 Diabetes mellitus complication status: without complication Diabetes mellitus intermediate manager insulin use: without intermediate manager use Qualified Code(s): E11.9 - Type 2 diabetes mellitus without complications Discussion w patient/family: The assessment and plan as outlined above was discussed with the patient and/or family members who expressed understanding and agreement. All questions were answered. Thank you for involving us in the care of your patient. Please call with any questions. Subjective Principal diagnosis: CAD Interval history: No new complaints. Denies questions. Denies chest pain. Objective Vital Signs, Last 4 Hours Temp Pulse Resp BP Pulse Ox 09/04/16 07:14 98.4 F 69 15 143/85 95 General: Conversant, No Apparent Distress HEENT: Atraumatic, Normocephaly, Mucus Membranes Moist Neck: No JVD, Normal carotid pulses Cardiac: Reg Rate and Rhythm, Normal S1 and S2, No Murmur Lungs: Normal Breath Sounds, No Wheeze, Rales, Rhonchi Neuro: Alert and responsive, No focal deficits noted Abdomen: Soft, Non-Tender Skin: No rashes noted on visualized skin Musculoskeletal: No Chest Wall Tenderness Extremities: No Clubbing, No Cyanosis, No Edema, Normal Pulses Results 09/03/16 06:15 09/03/16 06:15 - EKG Interpretation EKG results cardiology: other (NSR) Consult Discharge Plan - Plan Referrals: Erica Blackburn, RESTAURANT KITCHEN MANAGER [Primary Care Provider] -
--- NOTE | 2016-09-04 11:50 | Cardiothoracic Progress Note ---
Date of Encounter: 09/04/16 Time of Encounter: 11:49 - Assessment and plan (1) CAD (coronary artery disease) Current Visit: Yes Status: Acute The patient is a 51-year-old hypertensive man with known CAD and hypercholesterolemia. The patient's initial cardiac intervention occurred in 2005 at which time he underwent PCI and stent placements in both the LAD and ramus intermediate. He did well until the last 6 months, during which time he has developed progressive shortness of breath, dyspnea on exertion, decreased exercise tolerance and easy fatigability. He underwent an exercise stress test as part of a cardiac clearance for an elective right rotator cuff repair. This was positive for ischemia and the subsequent cardiac catheterization revealed severe 3 vessel CAD. The patient has been recommended for CABG. I concur with this recommendation. The patient understands the procedure, alternatives, benefits, and risk of the operation. He gives his informed consent. Currently the patient is on fish oil this will be stopped for 3-4 days prior to CABG. The operation will be tentatively scheduled for early next week. The assessment and plan as outlined above was discussed with the patient and/or family members who expressed understanding and agreement. All questions were answered. Qualifiers: Coronary Disease-Associated Artery/Lesion type: [place] artery [place] vs. transplanted heart: [place] heart Associated angina: with other forms of angina Qualified Code(s): I25.118 - Atherosclerotic heart disease of [place] coronary artery with other forms of angina pectoris - Subjective Interval history: The patient is resting comfortably in his hospital bed. He has had no chest pain or shortness of breath. Oxgyen Flow Rate Oxygen Flow Rate (LPM) 1 Clinical Data, last 8 Hours Output, Urine Amount 325 Weight 09/02/16 09/03/16 09/04/16 23:59 23:59 23:59 Weight 94.404 kg 94.3 kg 95.5 kg - Physical Examination General: Conversant, No Apparent Distress Neck: No JVD, Normal carotid pulses Cardiac: Reg Rate and Rhythm, Normal S1 and S2, No Murmur Lungs: Normal Breath Sounds, No Wheeze, Rales, Rhonchi Neuro: Alert and responsive, No focal deficits noted Vascular: Normal capillary refill Musculoskeletal: No Chest Wall Tenderness Extremities: No Clubbing, No Cyanosis, No Edema - Labs 09/03/16 06:15 09/03/16 06:15 Consult Discharge Plan - Plan Referrals: Erica Blackburn, NIRANJAN [Primary Care Provider] -
--- NOTE | 2016-09-04 12:45 | Internal Medicine Consult Note ---
Date of Encounter: 09/04/16 Time of Encounter: 12:40 Internal Medicine - CN: HPI - Data of Consult Patient: new to practice Consult date: 09/04/16 Requesting Physician: Genesis Blue Jr, MD - Consult Narrative Reason for consult: Newly diagnosed DM History of present illness: Mr. Dejesus is a 51 year old male. The hospitalist service was consulted in regards to recommendations for management of newly diagnosed diabetes. The patient states that he has family history of diabetes, his mother was diagnosed with diabetes many years ago. No other family members with history of diabetes that he is aware of. The patient denies polyuria, polydipsia, polyphagia. He denies weight loss. His hemoglobin A1c was found to be 7.4. He has never been under treatment for diabetes. He will undergo CABG for severe coronary artery disease during the week. All systems: reviewed and no additional remarkable complaints except as stated - Constitutional Constitutional: as per HPI - EENT Eyes: as per HPI Ears: as per HPI Nose, mouth and throat: as per HPI - Breasts Breasts: as per HPI - Cardiovascular Cardiovascular ROS IM: as per HPI - Respiratory Respiratory: as per HPI - Gastrointestinal Gastrointestinal: as per HPI - Genitourinary Genitourinary ROS male: as per HPI - Musculoskeletal Musculoskeletal ROS IM: as per HPI - Integumentary Integumentary IM: as per HPI - Neurological Neurological ROS: as per HPI - Psychiatric Psychiatric: as per HPI - Endocrine Endocrine IM: as per HPI - Hematologic/Lymphatic Hematologic/Lymphatic: as per HPI - Allergic/Immunologic Allergic/Immunologic: as per HPI Past Med Surg Social Fam HX - Past Medical History Medical history: coronary artery disease, GERD, hyperlipidemia, hypertension, myocardial infarction, SVT Psychiatric history: no psych history - Past Surgical History Surgical History: angioplasty/stent, other (Lumbar laminectomy.) - Social History Smoking Status: Never smoker Smokeless Tobacco Status: No Alcohol use: rarely Drug use: none - Family History Mother Living Status: Age at : 73 Cause of : Breast cancer and heart dx. Hx Family Cardiac Disorders: Yes Hx Family Cancer: Yes Hx Family Endocrine Disorder: Yes (DM) Father Age at : 75 Cause of : COPD and leukemia Hx Family Respiratory Disorders: Yes Hx Family Cancer: Yes Internal Medicine - CN: Meds Aspirin 81 mg PO DAILY 03/24/16 [History] [place]-3/Dha/Epa/Fish Oil [Fish Oil] 1,000 mg PO BID 03/24/16 [History] Omeprazole [PriLOSEC] 20 mg PO DAILY 03/24/16 [History] Pravastatin Sodium [Pravachol] 80 mg PO DAILY 03/24/16 [History] Isosorbide MONOnitrate (24 HR) [Imdur] 30 mg PO DAILY 09/02/16 [History] Meloxicam 15 mg PO DAILY 09/02/16 [History] Metoprolol XL (24 HR) Succ [Toprol XL] 50 mg PO DAILY 09/02/16 [History] Multivitamin [Multivitamins] 1 each PO DAILY 09/02/16 [History] Allergies atorvastatin [From Lipitor] Allergy (Verified 03/24/16 06:22) Joint Pain Iodinated Contrast Media - Oral and Allergy (Verified 03/24/16 06:22) Anaphylaxis Internal Medicine - CN: Exam - Constitutional Vitals: Temp Pulse Resp BP Pulse Ox 98.4 F 69 15 143/85 95 09/04/16 07:14 09/04/16 07:14 09/04/16 07:14 09/04/16 07:14 09/04/16 07:14 General appearance IM: Present: A&O X 3, pleasant, no acute distress - Head Head exam: Present: atraumatic - ENT ENT exam: Present: mucous membranes moist - Neck Neck exam general surgery: Present: full ROM - Respiratory Respiratory exam: Present: CTAB - Cardiovascular Cardiovascular exam IM: Present: RRR - GI/Abdominal GI/Abdominal exam IM: Present: normal bowel sounds, no peritoneal signs - Extremities Exam Extremities exam IM: Present: normal capillary refill, normal inspection - Back Exam Back exam: Present: full ROM - Neurological Exam Neurological exam: Present: oriented X3 - Psychiatric Psychiatric exam: Present: normal affect, normal mood - Skin Skin exam IM: Present: normal color Internal Medicine - CN: Reslt - Labs CBC & Chem 7: 09/03/16 06:15 09/03/16 06:15 - Assessment and Plan (1) Diabetes Current Visit: Yes Status: Acute Assessment and plan: Mr. Dejesus is a very plesant 51 yo gentleman newly diagnosed with DM with a Hb A1c 7.9, he is otherwise asymptomatic at this point. Would recommend to monitor his fingesrtick premeals and HS while inhouse. Ideally, would start metformin, however, he is in the hospital and will undergo surgery this week. Glucose levels while inpatient 188 times 2. In this scenario, would recommend a close monitoring of his fingerstick and management with RISS, if fingerstick levels are elevated might consider a short acting sulfonylurea. Definitely needs to start pharmacological treatment upon discharge, likely metformin. Additionally, since is a new diagnosis, would recommend a baseline eye exam (outpatient) and test for microalbuminuria. Vigorous cardiac risk reduction (smoking cessation, blood pressure control, reduction in serum lipids, diet, and exercise) should be a priority as well. Consultation with nutrition and with our hockey player is recommended. Management as per primary team. Thank you for the consult. Please call if any questions. Qualifiers: Diabetes mellitus type: type 2 Diabetes mellitus complication status: without complication Diabetes mellitus adjunct faculty for medical terminology insulin use: without long-term use Qualified Code(s): E11.9 - Type 2 diabetes mellitus without complications (2) CAD (coronary artery disease) Current Visit: Yes Status: Acute Qualifiers: Coronary Disease-Associated Artery/Lesion type: [place] artery [place] vs. transplanted heart: [place] heart Associated angina: with other forms of angina Qualified Code(s): I25.118 - Atherosclerotic heart disease of [place] coronary artery with other forms of angina pectoris (3) Mixed hyperlipidemia Current Visit: Yes Status: Acute Consult Discharge Plan - Plan Referrals: Erica Blackburn, INTERNET SOURCER [Primary Care Provider] -
[2016-09-04] MEDS ORDERED: Dextrose Gel 15 GM PO PRN ×2 (13:19)
[2016-09-04] MEDS ORDERED: *HR* Dextrose 50 % in Water (Syg) 50 ML SYRINGE IVP PRN (13:19)
[2016-09-04] MEDS ORDERED: D5% in Water 1,000 ML IV PRN (13:19)
[2016-09-04] MEDS: Insulin LISPRO 300 UNITS/3 ML VIAL SQ SCH ×2 (17:28→19:56)
[2016-09-04] MEDS: (Pravastatin Sodium [Pravachol] 80 MG) PO SCH (17:28)
[2016-09-04] MEDS: 0.9 % Sodium Chloride 1,000 ML IVC SCH (18:15)
[2016-09-04 20:25] LABS: Creatinine,Urine 76 mg/dL; Microalbum/Creatinine Ratio,Ur 8 (0-30); Microalbumin,Urine 6 mg/L
[2016-09-05] MEDS: 0.9 % Sodium Chloride 1,000 ML IVC SCH ×2 (05:28→14:33)
[2016-09-05] MEDS: *HR* Enoxaparin 100 MG/ML SYRINGE SQ SCH ×2 (05:30→17:50)
--- NOTE | 2016-09-05 07:27 | Cardiothoracic Progress Note ---
Date of Encounter: 09/05/16 Time of Encounter: 07:26 - Assessment and plan (1) CAD (coronary artery disease) Current Visit: Yes Status: Acute The patient is a 51-year-old hypertensive man with known CAD and hypercholesterolemia. The patient's initial cardiac intervention occurred in 2005 at which time he underwent PCI and stent placements in both the LAD and ramus intermediate. He did well until the last 6 months, during which time he has developed progressive shortness of breath, dyspnea on exertion, decreased exercise tolerance and easy fatigability. He underwent an exercise stress test as part of a cardiac clearance for an elective right rotator cuff repair. This was positive for ischemia and the subsequent cardiac catheterization revealed severe 3 vessel CAD. The patient has been recommended for CABG. I concur with this recommendation. The patient understands the procedure, alternatives, benefits, and risk of the operation. He gives his informed consent. Currently the patient is on fish oil this will be stopped for 3-4 days prior to CABG. The operation will be tentatively scheduled for early next week. The assessment and plan as outlined above was discussed with the patient and/or family members who expressed understanding and agreement. All questions were answered. Qualifiers: Coronary Disease-Associated Artery/Lesion type: [place] artery [place] vs. transplanted heart: [place] heart Associated angina: with other forms of angina Qualified Code(s): I25.118 - Atherosclerotic heart disease of [place] coronary artery with other forms of angina pectoris - Subjective Interval history: The patient is resting comfortably in his hospital bed. He has had no chest pain or shortness of breath. Vital Signs, Last 4 Hours Temp Pulse Resp BP 09/05/16 07:20 97.7 F 70 16 136/97 Oxgyen Flow Rate Oxygen Flow Rate (LPM) 0.5 Clinical Data, last 8 Hours Output, Urine Amount 250 Weight 09/03/16 09/04/16 09/05/16 23:59 23:59 23:59 Weight 94.3 kg 95.5 kg 95.3 kg - Physical Examination General: Conversant, No Apparent Distress Neck: No JVD, Normal carotid pulses Cardiac: Reg Rate and Rhythm, Normal S1 and S2, No Murmur Lungs: Normal Breath Sounds, No Wheeze, Rales, Rhonchi Neuro: Alert and responsive, No focal deficits noted Vascular: Normal capillary refill Musculoskeletal: No Chest Wall Tenderness Extremities: No Clubbing, No Cyanosis, No Edema - Labs 09/03/16 06:15 09/03/16 06:15 Consult Discharge Plan - Plan Referrals: Erica Blackburn CNP [Primary Care Provider] -
[2016-09-05] MEDS: Aspirin 81 MG TAB.CHEW PO SCH (07:41)
[2016-09-05] MEDS: Insulin LISPRO 300 UNITS/3 ML VIAL SQ SCH ×4 (07:41→20:39)
[2016-09-05] MEDS: Metoprolol XL (24 HR) Succ 50 MG TAB.ER.24H PO SCH (07:41)
[2016-09-05] MEDS: (Pravastatin Sodium [Pravachol] 80 MG) PO SCH (07:42)
--- NOTE | 2016-09-05 09:02 | Cardiology Progress Note ---
Date of Encounter: 09/05/16 Time of Encounter: 09:00 Assessment and Plan (1) CAD (coronary artery disease) Current Visit: Yes Status: Acute Pt has been recommended for CABG for his severe 3 vessel CAD. He was on fish oil, since been stopped--needs stopped for 3-4 days prior to CABG. The operation will be tentatively scheduled for tomorrow afternoon with Dr. Ovalle. Pt denies any chest pain or dyspnea. Denies questions. Continue ASA, BB, Lovenox. Start pravastatin. taking previously and tolerated well. EF preserved on echo 08/31. Will continue to monitor until pt is taken to CABG. Labs and vitals stable. Right radial access site healing well. No bleeding, hematoma or ecchymosis noted. Check labs. Qualifiers: Coronary Disease-Associated Artery/Lesion type: [place] artery [place] vs. transplanted heart: crow heart Associated angina: with other forms of angina Qualified Code(s): I25.118 - Atherosclerotic heart disease of [place] coronary artery with other forms of angina pectoris (2) Diabetes Current Visit: Yes Status: Acute New diagnosis of DM type II this admission. HGB A1C 7.9. Hospitalist consulted. Hospitalist recommended close monitoring of his fingersticks and management with RISS, if fingerstick levels are elevated might consider a short acting sulfonylurea. Needs to start pharmacological treatment upon discharge, likely metformin. Recommended baseline eye exam (outpatient) and test for microalbuminuria. Consultation with nutrition and with our carbon accountant was recommended. Qualifiers: Diabetes mellitus type: type 2 Diabetes mellitus complication status: without complication Diabetes mellitus middle or intermediate school principal insulin use: without long-term use Qualified Code(s): E11.9 - Type 2 diabetes mellitus without complications Discussion w patient/family: The assessment and plan as outlined above was discussed with the patient and/or family members who expressed understanding and agreement. All questions were answered. Thank you for involving us in the care of your patient. Please call with any questions. I will discuss all the above with Dr. Radu Singh and make changes as necessary. Subjective Principal diagnosis: CAD Interval history: Pt denies any chest pain or dyspnea. No acute complaints. CABG planned for tomorrow afternoon. Objective Vital Signs, Last 4 Hours Temp Pulse Resp BP 09/05/16 07:20 97.7 F 70 16 136/97 Vital Signs Temp Pulse Resp BP Pulse Ox 09/05/16 07:20 97.7 F 70 16 136/97 09/05/16 03:13 98.4 F 79 14 125/80 98 09/04/16 23:14 98.2 F 74 16 136/83 97 09/04/16 19:53 97.8 F 72 18 144/88 96 09/04/16 16:53 78 14 147/86 95 09/04/16 15:39 97.7 F 70 14 147/86 95 09/04/16 15:00 76 09/04/16 13:57 97.8 F 64 15 143/84 95 09/04/16 12:53 97.8 F 64 15 143/84 95 Intake and Output 09/04/16 09/05/16 09/05/16 23:59 07:59 15:59 Intake Total 1000 / 1000 240 / 240 Output Total 700 / 700 850 / 850 Balance 300 / 300 -850 / -850 240 / 240 Intake: IV Fluids 1000 / 1000 0.9 % Sodium Chloride 1, 1000 / 1000 000 ML @ 50 mls/hr IVC . Q20H [facility] Rx#:[id number] Oral 240 / 240 Output: Urine 700 / 700 850 / 850 Other: Meal Dinner Breakfast Percent of Meal Consumed 100% 100% Weight 95.3 kg Blood Glucose* 171 164 Patient Weight 09/05/16 23:59 Weight 95.3 kg General: Conversant, No Apparent Distress HEENT: Atraumatic, Normocephaly, Mucus Membranes Moist Neck: No JVD, Normal carotid pulses Cardiac: Reg Rate and Rhythm, Normal S1 and S2, No Murmur Lungs: Normal Breath Sounds, No Wheeze, Rales, Rhonchi Neuro: Alert and responsive, No focal deficits noted Abdomen: Soft, Non-Tender Skin: No rashes noted on visualized skin Musculoskeletal: No Chest Wall Tenderness Extremities: No Clubbing, No Cyanosis, No Edema, Normal Pulses Results 09/03/16 06:15 09/03/16 06:15 Active Medications Aspirin (Aspirin) 81 mg PO DAILY [facility] Stop: 03/04/17 12:01 Last Admin: 09/05/16 07:41 Dose: 81 mg Chlorhexidine Gluconate (Chlorhexidine Rinse) 15 ml MM BID [facility] Stop: 09/06/16 09:01 Dextrose/Water (Dextrose 50% (Syg)) 25 ml IVP AD PRN PRN Reason: Hypoglycemia Stop: 03/06/17 13:20 Enoxaparin Sodium (Lovenox) 100 mg 1 mg/kg (100 mg) SQ Q12HR [facility] PRN Reason: Protocol Stop: 03/04/17 18:01 Last Admin: 09/05/16 05:30 Dose: 100 mg Glucagon (Glucagen) 1 mg IM ONCE PRN PRN Reason: Hypoglycemia Stop: 03/06/17 13:20 Glucose (Gluctose) 15 gm PO ONCE PRN PRN Reason: Hypoglycemia Stop: 03/06/17 13:20 Glucose (Gluctose) 30 gm PO ONCE PRN PRN Reason: Hypoglycemia Stop: 03/06/17 13:20 Sodium Chloride (0.9 % Sodium Chloride) 1,000 mls @ 50 mls/hr IVC .Q20H [facility] Stop: 03/04/17 08:31 Last Admin: 09/05/16 05:28 Dose: Not Given Dextrose (Dextrose 5%) 1,000 mls @ 100 mls/hr IV CONT PRN PRN Reason: HYPOGLYCEMIA Stop: 03/06/17 13:20 Cefazolin Sodium 2,000 mg/ (Dextrose) 100 mls @ 200 mls/hr IVPB PREOP ONE PRN Reason: Protocol Stop: 09/06/16 12:29 Insulin Human Lispro (Humalog) 0 units SQ TIDAC [facility] PRN Reason: Protocol Stop: 03/06/17 16:31 Last Admin: 09/05/16 07:41 Dose: 2 units Insulin Human Lispro (Humalog) 0 units SQ HS [facility] PRN Reason: Protocol Stop: 03/06/17 21:01 Last Admin: 09/04/16 19:56 Dose: Not Given Metoprolol Succinate (Toprol Xl) 50 mg PO DAILY [facility] Stop: 03/04/17 12:01 Last Admin: 09/05/16 07:41 Dose: 50 mg Omeprazole (Prilosec) 20 mg PO DAILY [facility] PRN Reason: Protocol Stop: 03/04/17 12:01 Last Admin: 09/05/16 07:41 Dose: 20 mg Pharmacy Profile Note (Patient Taking Own Medication) 0 each PO DAILY [facility] Stop: 03/05/17 09:01 Last Admin: 09/05/16 07:42 Dose: 1 each - EKG Interpretation EKG results cardiology: other (12 hour tele AVG HR 73, SR, no significant pauses or arrhythmias) Consult Discharge Plan - Plan Referrals: Erica Blackburn, INSURANCE HEALTHCARE REPRESENTATIVE [Primary Care Provider] -
[2016-09-05 09:44] LABS: Basophils # 0.1 K/mcL (0.0-0.2); Eosinophils # 0.4 K/mcL (0.0-0.6); Eosinophils % 5.3 %; Hematocrit 43.2 % (37.5-50.1); Hemoglobin 14.5 g/dL (12.9-16.9); Immature Granulocytes % 0.8 % (0-4); Lymphocytes # 1.4 K/mcL (0.6-4.6); Lymphocytes % 19.2 %; Mean Corpuscular HGB Conc 33.6 g/dL (31.6-35.5); Mean Corpuscular Volume 83.6 fL (83.0-100.0); Mean Platelet Volume 10.2 fL (9.4-12.4); Monocytes # 0.6 K/mcL (0.0-1.3); Monocytes % 8.7 %; Neutrophils # 4.6 K/mcL (1.6-8.9); Platelet Count 273 K/mcL (140-400); Red Blood Count 5.17 M/mcL (4.19-5.50); Red Cell Distribution Width 13.1 % (11.5-14.5)
[2016-09-05 09:45] LABS: BUN/Creatinine Ratio 14 (6-26); Blood Urea Nitrogen 12 mg/dL (8-26); Calcium 9.3 mg/dL (8.6-10.8); Carbon Dioxide 22 mEq/L (19-29); Chloride 102 mEq/L (98-109); Glucose 232 mg/dL (70-99); Osmolality,Calculated 289 (280-300); Potassium 3.7 mEq/L (3.5-4.5); Sodium 136 mEq/L (136-145); eGFR For African Americans > 60 (> 60); eGFR For Non-African Americans > 60 (> 60)
--- NOTE | 2016-09-05 10:40 | Electrocardiograph Report ---
[facility] Test Date: 2016-09-05 Pat Name: ALIYA CRUZ Department: 110 Room: 2N11 Gender: M Medical Interpreter: JOAN : 1965 Requested By: eGnesis Blue Order Number: [id number] Reading MD: Rey Portillo DO Measurements Intervals [place] Rate: 71 P: 22 MI: 149 QRS: -30 QRSD: 98 T: 62 QT: 379 QTc: 401 Interpretive Statements Sinus rhythm Possible septal infarction, age undetermined Electronically Signed On 09-05-16 10:39:48 EST by Rey Portillo DO
--- NOTE | 2016-09-05 13:27 | Internal Med Progress Note ---
Date of Encounter: 09/05/16 Time of Encounter: 09:15 - Assessment and plan (1) Diabetes Current Visit: Yes Status: Acute Assessment and plan: Newly diagnosed, with HLD and CAD No current evidence of renal complication, however, CAD may qualify as macrovascular complication of DM A1C at diagnosis 7.9 Goal A1C <7 for age and co-morbidities Already on statin for CAD, continue same Supplemental scale insulin is adequate for glucose control for now, continue same. Goal Fingersticks during hospitalization is 140-180mg/dl However, patient is educated on necessity for oral medication at time of discharge, preferable metformin if renal function remains stable after surgery He will need an Ophthalmic exam and Urine to assess [facility] as out-patient, PCP may arrange this We will be signing off this case, thank you for the consult Qualifiers: Diabetes mellitus type: type 2 Diabetes mellitus complication status: without complication Diabetes mellitus halfway insulin use: without halfway use Qualified Code(s): E11.9 - Type 2 diabetes mellitus without complications (2) CAD (coronary artery disease) Current Visit: Yes Status: Acute Assessment and plan: Per CTS and cardiology Qualifiers: Coronary Disease-Associated Artery/Lesion type: [place] artery [place] vs. transplanted heart: [place] heart Associated angina: with other forms of angina Qualified Code(s): I25.118 - Atherosclerotic heart disease of [place] coronary artery with other forms of angina pectoris (3) Mixed hyperlipidemia Current Visit: Yes Status: Acute - Subjective Interval history: Patient with CAD awaiting CABG Hospitalist team consulted for management of newly diagnosed DM with A1C 7.9 patient seen at bedside today with no new complains He has been started on supplemental scale insulin which has been improving fingersticks Again educated about lifestyle modification and need for eye exam annually and follow up after discharge , verbalizes understanding We will be signing off this consult Please re-consult if any questions ore clarifications needed - Constitutional Vitals: Temp Pulse Resp BP Pulse Ox 97.8 F 72 18 150/97 95 09/05/16 11:33 09/05/16 11:33 09/05/16 11:33 09/05/16 11:33 09/05/16 11:33 General appearance: Present: A&O X 3, pleasant, no acute distress - Head Head exam: Present: atraumatic, normocephalic - Eye Eye exam: Present: PERRL, conjuntiva pink, sclera anicteric Pupils: Present: PERRL - Neck Neck exam general surgery: Present: supple, trachea midline. Absent: lymphadenopathy - Respiratory Respiratory exam: Present: CTAB. Absent: accessory muscle use, rales, rhonchi, wheezes - Cardiovascular Cardiovascular exam: Present: RRR, +S1, +S2. Absent: diastolic murmur, gallop, rubs, systolic murmur - GI/Abdominal GI/Abdominal exam: Present: normal bowel sounds, soft, no peritoneal signs. Absent: distended, tenderness - Extremities Exam Extremities exam: Present: warm, radial pulses palpable and symetrical. Absent : calf tenderness, cyanotic, pedal edema - Neurological Exam Neurological exam: Present: CN II-XII intact, oriented X3, no focal deficits. Absent: pronater drift, facial droop, speech deficit - Skin Skin exam: Present: dry, intact Internal Medicine: Result - Labs CBC & Chem 7: 09/05/16 09:09 09/05/16 09:09 Labs: Short CBC 09/05/16 Range/Units 09:09 WBC 7.1 (4.3-11.1) K/mcL Hgb 14.5 (12.9-16.9) g/dL Hct 43.2 (37.5-50.1) % Plt Count 273 (140-400) K/mcL Neutrophils # 4.6 (1.6-8.9) K/mcL BMP 09/05/16 09:09 Sodium 136 Potassium 3.7 Chloride 102 Carbon Dioxide 22 BUN 12 Creatinine 0.86 Glucose 232 H Calcium 9.3 Consult Discharge Plan - Plan Referrals: Erica Blackburn, PHYSICAL TRAINER [Primary Care Provider] -
[2016-09-05] MEDS: Chlorhexidine Rinse 15 ML MOUTHWASH MM SCH (20:40)
[2016-09-06] MEDS: *HR* Enoxaparin 100 MG/ML SYRINGE SQ SCH (05:43)
[2016-09-06] MEDS: Insulin LISPRO 300 UNITS/3 ML VIAL SQ SCH ×3 (08:19→20:06)
[2016-09-06] MEDS: Aspirin 81 MG TAB.CHEW PO SCH (08:20)
[2016-09-06] MEDS: (Pravastatin Sodium [Pravachol] 80 MG) PO SCH (08:20)
--- NOTE | 2016-09-06 08:57 | Anesthesia Evaluation PreOp ---
Date of Encounter: 09/06/16 Time of Encounter: 12:30 - Past History Planned Operation: CABG Cardiac History: [place], Angina, HTN, Hyperlipidemia, Arrhythmia (hx of SVT), Cardiac Stent (2005) Pulmonary History: Denies Any Significant HX (never smoked) REGISTRATION REP History: Denies Any Significant HX Other Medical History: GERD Anesthesia History: No Prior Anesthetic Complications, Past Anesthesia (lumbar laminectomy) Alcohol Use: rarely Drug use: none Medications and Allergies Aspirin 81 mg PO DAILY 03/24/16 [History] [place]-3/Dha/Epa/Fish Oil [Fish Oil] 1,000 mg PO BID 03/24/16 [History] Omeprazole [PriLOSEC] 20 mg PO DAILY 03/24/16 [History] Pravastatin Sodium [Pravachol] 80 mg PO DAILY 03/24/16 [History] Isosorbide MONOnitrate (24 HR) [Imdur] 30 mg PO DAILY 09/02/16 [History] Meloxicam 15 mg PO DAILY 09/02/16 [History] Metoprolol XL (24 HR) Succ [Toprol XL] 50 mg PO DAILY 09/02/16 [History] Multivitamin [Multivitamins] 1 each PO DAILY 09/02/16 [History] Allergies atorvastatin [From Lipitor] Allergy (Verified 03/24/16 06:22) Joint Pain Iodinated Contrast Media - Oral and Allergy (Verified 03/24/16 06:22) Anaphylaxis - Meds/Allergy Pre-op Review Medications Reviewed: Yes Allergies Reviewed: Yes Beta Blockers on Current Med List: Yes Anesthesia Results - Labs 09/05/16 09:09 09/05/16 09:09 - Imaging EKG: report reviewed Chest x-ray: report reviewed Additional studies: Cath shows 3 vessel ds. Positive stress test. EF 55% Anesthesia Exam Selected Entries 09/06/16 07:21 Temperature 97.6 F Pulse Rate 71 Respiratory Rate 16 Blood Pressure 147/86 O2 Sat by Pulse Oximetry 95 Height: 70in Weight: 96kg NPO (# of Hours): 8 Pain Scale: 0 Pain Scale Used: Numeric (1 - 10) - HEENT Pupil (Motor): EOMI Mallampati: II Teeth: Normal Oral Opening: Greater than 3 - REGISTRATION REP LOC: Oriented REGISTRATION REP Motor: Normal RUE, Normal LUE, Normal RLE, Normal LLE, Normal Face REGISTRATION REP Sensory: Normal: RUE, LUE, RLE, LLE, Face - Cardiac Rhythm: Regular Murmur: None - Pulmonary Breath Sounds: bilateral Clear Respiratory Effort: Symmetrical Anesthesia Assess/Plan ASA Score: 3 Modified Mega Scale for Level of Consciousness: Cooperative, oriented, and tranquil Anesthetic Plan: General Autologous Blood: No Monitoring Plan: Standard Monitors, A-Line, PAC Recovery Plan: ICU (Discussed risks of GA, lines and blood. Advised possible need for ELENI. Questions answered. Agrees to proceed.)
--- NOTE | 2016-09-06 09:14 | Cardiology Progress Note ---
Date of Encounter: 09/06/16 Time of Encounter: 09:12 Assessment and Plan (1) CAD (coronary artery disease) Current Visit: Yes Status: Acute Pt has been recommended for CABG for his severe 3 vessel CAD. He was on fish oil, since been stopped--needs stopped for 3-4 days prior to CABG. The operation is scheduled for today with Dr. Ovalle. Pt denies any chest pain or dyspnea. Denies questions. Continue ASA, BB, Lovenox. On home Pravastatin currently. EF preserved on echo 08/31. Will continue to monitor until pt is taken to CABG. Labs and vitals stable. Follow-up 4-6 weeks after CABG. Qualifiers: Coronary Disease-Associated Artery/Lesion type: [place] artery [place] vs. transplanted heart: [place] heart Associated angina: with other forms of angina Qualified Code(s): I25.118 - Atherosclerotic heart disease of [place] coronary artery with other forms of angina pectoris (2) Diabetes Current Visit: Yes Status: Acute New diagnosis of DM type II this admission. HGB A1C 7.9. Hospitalist consulted. Hospitalist recommended close monitoring of his fingersticks and management with RISS, if fingerstick levels are elevated might consider a short acting sulfonylurea. Needs to start pharmacological treatment upon discharge, likely metformin. Recommended baseline eye exam (outpatient) and test for microalbuminuria. Consultation with nutrition and with our consumer educator was recommended. Qualifiers: Diabetes mellitus type: type 2 Diabetes mellitus complication status: without complication Diabetes mellitus marine oil terminal superintendent insulin use: without marine oil terminal superintendent use Qualified Code(s): E11.9 - Type 2 diabetes mellitus without complications Discussion w patient/family: The assessment and plan as outlined above was discussed with the patient and/or family members who expressed understanding and agreement. All questions were answered. Thank you for involving us in the care of your patient. Please call with any questions. I will discuss all the above with Dr. Dempsey and make changes as necessary. Subjective Principal diagnosis: CAD Interval history: Pt denies any chest pain or dyspnea. No acute complaints. CABG planned for today. Objective Vital Signs, Last 4 Hours Temp Pulse Resp BP Pulse Ox 09/06/16 07:21 97.6 F 71 16 147/86 95 Vital Signs Temp Pulse Resp BP Pulse Ox 09/06/16 07:21 97.6 F 71 16 147/86 95 09/06/16 03:43 98.4 F 78 16 142/82 96 09/05/16 23:50 97.8 F 72 18 130/77 96 09/05/16 20:36 98.1 F 73 20 140/85 09/05/16 15:56 98.3 F 75 20 136/88 98 09/05/16 11:33 97.8 F 72 18 150/97 95 Intake and Output 09/05/16 09/06/16 09/06/16 23:59 07:59 15:59 Intake Total 740 / 740 Output Total 725 / 725 200 / 200 Balance -200 / -200 Intake: Oral 740 / 740 Output: Urine 725 / 725 200 / 200 Other: Meal Dinner Percent of Meal Consumed 95% Weight 94.6 kg Blood Glucose* 162 152 Patient Weight 09/06/16 23:59 Weight 94.6 kg General: Conversant, No Apparent Distress HEENT: Atraumatic, Normocephaly, Mucus Membranes Moist Neck: No JVD, Normal carotid pulses Cardiac: Reg Rate and Rhythm, Normal S1 and S2, No Murmur Lungs: Normal Breath Sounds, No Wheeze, Rales, Rhonchi Neuro: Alert and responsive, No focal deficits noted Abdomen: Soft, Non-Tender Skin: No rashes noted on visualized skin Musculoskeletal: No Chest Wall Tenderness Extremities: No Clubbing, No Cyanosis, No Edema, Normal Pulses Results 09/05/16 09:09 09/05/16 09:09 Lab Results 09/05/16 09/05/16 09:09 09:09 WBC 7.1 Hgb 14.5 Hct 43.2 Plt Count 273 Sodium 136 Potassium 3.7 Chloride 102 Carbon Dioxide 22 BUN 12 Creatinine 0.86 Glucose 232 H Calcium 9.3 Short CBC 09/05/16 Range/Units 09:09 WBC 7.1 (4.3-11.1) K/mcL Hgb 14.5 (12.9-16.9) g/dL Hct 43.2 (37.5-50.1) % Plt Count 273 (140-400) K/mcL Neutrophils # 4.6 (1.6-8.9) K/mcL BMP 09/05/16 Range/Units 09:09 Sodium 136 (136-145) mEq/L Potassium 3.7 (3.5-4.5) mEq/L Chloride 102 (98-109) mEq/L Carbon Dioxide 22 (19-29) mEq/L BUN 12 (8-26) mg/dL Creatinine 0.86 (0.72-1.25) mg/dL Glucose 232 H (70-99) mg/dL Calcium 9.3 (8.6-10.8) mg/dL Active Medications Aspirin (Aspirin) 81 mg PO DAILY [facility] Stop: 03/04/17 12:01 Last Admin: 09/06/16 08:20 Dose: Not Given Dextrose/Water (Dextrose 50% (Syg)) 25 ml IVP AD PRN PRN Reason: Hypoglycemia Stop: 03/06/17 13:20 Enoxaparin Sodium (Lovenox) 100 mg 1 mg/kg (100 mg) SQ Q12HR [facility] PRN Reason: Protocol Stop: 03/04/17 18:01 Last Admin: 09/06/16 05:43 Dose: 100 mg Glucagon (Glucagen) 1 mg IM ONCE PRN PRN Reason: Hypoglycemia Stop: 03/06/17 13:20 Glucose (Gluctose) 15 gm PO ONCE PRN PRN Reason: Hypoglycemia Stop: 03/06/17 13:20 Glucose (Gluctose) 30 gm PO ONCE PRN PRN Reason: Hypoglycemia Stop: 03/06/17 13:20 Sodium Chloride (0.9 % Sodium Chloride) 1,000 mls @ 50 mls/hr IVC .Q20H [facility] Stop: 03/04/17 08:31 Last Admin: 09/05/16 14:33 Dose: 50 mls/hr Dextrose (Dextrose 5%) 1,000 mls @ 100 mls/hr IV CONT PRN PRN Reason: HYPOGLYCEMIA Stop: 03/06/17 13:20 Cefazolin Sodium 2,000 mg/ (Dextrose) 100 mls @ 200 mls/hr IVPB PREOP ONE PRN Reason: Protocol Stop: 09/06/16 12:29 Insulin Human Lispro (Humalog) 0 units SQ TIDAC [facility] PRN Reason: Protocol Stop: 03/06/17 16:31 Last Admin: 09/06/16 08:19 Dose: Not Given Insulin Human Lispro (Humalog) 0 units SQ HS [facility] PRN Reason: Protocol Stop: 03/06/17 21:01 Last Admin: 09/05/16 20:39 Dose: Not Given Metoprolol Succinate (Toprol Xl) 50 mg PO DAILY [facility] Stop: 03/04/17 12:01 Last Admin: 09/05/16 07:41 Dose: 50 mg Omeprazole (Prilosec) 20 mg PO DAILY [facility] PRN Reason: Protocol Stop: 03/04/17 12:01 Last Admin: 09/06/16 08:20 Dose: Not Given Pharmacy Profile Note (Patient Taking Own Medication) 0 each PO DAILY [facility] Stop: 03/05/17 09:01 Last Admin: 09/06/16 08:20 Dose: Not Given Consult Discharge Plan - Plan Referrals: Erica Blackburn, AVIONICS ELECTRICAL ENGINEER [Primary Care Provider] -
[2016-09-06] MEDS ORDERED: D5% in Water 250 ML IV BAG IV ONE (09:19)
[2016-09-06] MEDS ORDERED: *HR* Heparin 10,000 UNIT/10 ML VIAL IV ONE (09:19)
[2016-09-06] MEDS ORDERED: *HR* Phenylephrine 10 MG/ML VIAL IVC ONE (09:19)
[2016-09-06] MEDS ORDERED: Albumin Human 25% 25 GM/100 ML IV.SOLN IV ONE (09:19)
[2016-09-06] MEDS ORDERED: Lidocaine 2% Syringe 100 MG/5 ML IV ONE (09:19)
[2016-09-06] MEDS ORDERED: *HR* Magnesium Sulfate 2 GM/50 ML PIGGYBACK IVPB ONE (09:19)
[2016-09-06] MEDS ORDERED: Tranexamic Acid 1,000 MG/10 ML VIAL IV ONE (09:19)
[2016-09-06] MEDS ORDERED: Mannitol 25% vial 12.5 GM/50 ML VIAL IVP ONE (09:19)
[2016-09-06] MEDS: Metoprolol XL (24 HR) Succ 50 MG TAB.ER.24H PO SCH (09:26)
[2016-09-06] MEDS: Chlorhexidine Rinse 15 ML MOUTHWASH MM SCH ×2 (09:26→20:48)
[2016-09-06] MEDS ORDERED: *HR* Rocuronium Bromide 50 MG/5 ML VIAL ONE ×3 (09:38→12:12)
[2016-09-06] MEDS ORDERED: *HR* Etomidate 20 MG/10 ML AMPUL IVP ONE (09:38)
[2016-09-06] MEDS ORDERED: Tranexamic Acid 1,000 MG/10 ML VIAL ONE ×2 (09:38→14:32)
[2016-09-06] MEDS ORDERED: Protamine Sulfate 250 MG/25 ML VIAL IVP ONE (09:38)
[2016-09-06] MEDS ORDERED: *HR* Phenylephrine 10 MG/ML VIAL ONE (09:38)
[2016-09-06] MEDS ORDERED: Famotidine 20 MG/2 ML VIAL ONE (09:38)
[2016-09-06] MEDS ORDERED: *HR* Norepinephrine 4 MG/4 ML VIAL IVC ONE (09:38)
[2016-09-06] MEDS ORDERED: *HR* Midazolam HCl 5 MG/5 ML VIAL IVP ONE (09:44)
[2016-09-06] MEDS ORDERED: *HR* FentaNYL (PF) 1,000 MCG/20 ML VIAL ONE (09:44)
[2016-09-06] MEDS ORDERED: ceFAZolin 2,000 MG in D5% in Water (Mini-Bag+) 100 ML IVPB ONE (12:00)
[2016-09-06] MEDS ORDERED: Nitroglycerin 25 MG/250 ML INFUS..BTL IVC ONE (12:10)
[2016-09-06] MEDS: Ringers Solution, Lactated 1,000 ML IVC SCH ×2 (12:52→15:33)
--- NOTE | 2016-09-06 13:53 | Anesthesia Procedures ---
Date of Encounter: 09/06/16 Time of Encounter: 12:55 Procedures: Anesthesia - Arterial Line Consent obtained: written consent Time out performed: Yes Sedation: Versed (mg): 2 Sedation: Fentanyl (mcg): 100 Supplemental Oxygen via Nasal Cannula (L/min): 2 Local Anesthetic: Lidocaine 1% Amount of Anesthetic used (mls): 1 Size (Gauge): 20 Length (inches): 5 Technique Used: sterile prep, guide wire technique, direct puncture technique Post-Procedure: line taped into place Patient tolerated procedure: well, no complications Complications: none Site: Radial L (attempt x 1) - Central Line Placement Right IJ Consent obtained: written consent Time out performed: Yes Patient placed on monitor/pulse ox: Yes prep: mask, gown, gloves Central line prep: Chlorhexidine scrub Ultrasound used for placement: Yes Technique: Seldinger Lumen Inserted: Introducer Post procedure: sutured in place, good blood return, all ports aspirated, flushed, capped, sterile dressing applied Patient tolerated procedure: well, no complications Complications: none Comments: attempt x 1 swan placed without incident. Wedge approximately 58cm
[2016-09-06] MEDS ORDERED: Protamine Sulfate 50 MG/5 ML VIAL IVP ONE (15:31)
--- NOTE | 2016-09-06 15:39 | Operative Note ---
Date of procedure: 09/06/16 Pre-op diagnosis: CAD Post-op diagnosis: same Procedure: 1. CABG 2 (JAIN to LAD, SVG to PDA). 2. Endoscopic vein harvesting, greater saphenous vein from right lower extremity. Implants: None. Complications: None. Anesthesia: DONNA Surgeon: Kassie Ovalle Cottonseed Meat Presser: Radu Keller Specimen: Left internal mammary artery lymph node. Condition: stable Disposition: ICU Procedure in Detail: INDICATIONS FOR OPERATION: The patient is a 51-year-old hypertensive man with known CAD and hypercholesterolemia. The patient's initial cardiac intervention occurred in 2005 at which time he underwent PCI and stent placements in both the LAD and ramus intermediate. He did well until the last 6 months, during which time he has developed progressive shortness of breath, dyspnea on exertion, decreased exercise tolerance and easy fatigability. He underwent an exercise stress test as part of a cardiac clearance for an elective right rotator cuff repair. This was positive for ischemia and the subsequent cardiac catheterization revealed severe 3 vessel CAD. The patient has been recommended for CABG. FINDINGS AT OPERATION: The aorta was of normal caliber without calcification. Coronary arteries were small, measuring approximately 1.25-1.5 mm in diameter and had mild distal disease. The greater saphenous vein was harvested is copied from the right lower extremity and was of good quality. The patient had hypertrophied lymph nodes along the left internal mammary artery. These were biopsied and sent for permanent section. The total bypass time was 39 minutes, cross-clamp time 22 minutes, intentional hypothermia to 35C. DESCRIPTION OF OPERATION: After obtaining informed operative consent from the patient, he was taken to the operating room where satisfactory general endotracheal anesthetic was induced. Appropriate monitoring lines were placed, and the patient's chest, abdomen, and lower extremities were prepped and draped in a sterile fashion. The greater saphenous vein was harvested endoscopically from the right lower extremity from the knee to the groin. The vein was removed, distended, and found to be of good quality. The subcutaneous tissue and skin edges reapproximated using running Vicryl sutures. Simultaneously a standard median sternotomy incision was made and the sternum divided. The JAIN was taken down from its bed and side branches divided between hemoclips. Numerous lymph nodes were noted along the mammary artery chain. These were biopsied and sent for permanent section. The sternum was then and the pericardium opened and reflected laterally. The patient was prepared for cannulation by placing pursestring sutures the distal ascending aorta, mid-ascending aorta, and right atrial appendage. The patient was heparinized when the ACT was greater in 200 seconds, the aorta was cannulated followed by placement of a dual stage venous cannula through the right atrial appendage and into the IVC. A stab-in antegrade metabolic cannulas placed in the mid-ascending aorta. The patient was placed on bypass and the temperature allowed to drift to 35C. The distal targets were identified in the D1 branch and LCx branch were found to be small and non-bypassable. The aorta was then crossclamped and the patient received 700 ml of cold antegrade crystalloid cardioplegia through the aortic root. The patient's heart obtained rapid diastolic arrest. The PDA was then opened with a blade and the vein was anastomosed in an end-to- side fashion using running 7-0 Prolene suture. The anastomosis was found to be hemostatic and the patient received another dose of cold antegrade crystalloid cardioplegia through both the aortic root and the vein graft. The LAD was then opened with the [place] blade and the JAIN was anastomosed to the LAD in an end- to-side fashion using a running 7-0 Prolene suture. The anastomosis was found to be hemostatic and the mammary pedicle was tacked to the epicardium using interrupted 5-0 silk suture. Rewarming was begun during this anastomosis. The aortic cross-clamp was released, and the heart distended. The vein was then measured and cut at appropriate length. A partial occluding clamp was then placed across the midascending aorta and the antegrade metabolic cannula was removed. The aortotomy site was enlarged with a 4 mm punch and the vein was anastomosed in an end-to-side fashion to the aorta using a running 5-0 Prolene suture. The vein graft was occluded with a bulldog clamp and de-aired with a 25- gauge needle prior to removing the partial occluding clamp. The proximal and distal anastomoses were found to be hemostatic and the proximal anastomosis was marked with a radiopaque loop. Two right ventricular temporary epicardial pacing leads were placed, and 2 chest tubes were placed, one in the anterior mediastinum and one along the diaphragm. During rewarming the patient's heart rhythm degenerated to ventricular fibrillation and he required a single 10 J direct current shock in order to regain normal sinus rhythm. When the patient's systemic temperature is 36C, he was ventilated and received volume. He was then weaned from bypass and required no inotropic support. Protamine was administered and the aortic and venous cannulas were removed. The pursestring sutures were secured and the aortic and venous cannulation sites were reinforced with a running 4-0 Prolene suture. The pericardium was loosely approximated over the aorta and the pulmonary artery; however, could not be reapproximated over the right ventricle to excessive tension. The sternum was reapproximated using sternal wires, and the pectoralis major fascia, rectus abdominis fascia, subcutaneous tissue, and skin edges were reapproximated using running Vicryl sutures. Sterile dressings were then applied. The patient was then transferred to the ICU in satisfactory postoperative condition. There were no intraoperative complications, and the instrument, needle, and sponge count were correct at end of operation. - Open Heart Detail MOIRA (Internal Mammary Artery) Usage: Yes Cardiopulmonary Bypass Time (mins): 39 Aortic Cross Clamp Time (mins): 22 Intentional Hypothermia Temperature (C.): 35
[2016-09-06] MEDS ORDERED: Albumin Human 5% 50.0 GM/1,000 ML VIAL ONE (15:42)
[2016-09-06] MEDS ORDERED: Ondansetron 4 MG/2 ML VIAL IVP PRN (15:43)
[2016-09-06] MEDS ORDERED: *HR* Morphine 2 MG/ML SYRINGE IVP PRN (15:43)
[2016-09-06] MEDS ORDERED: Naloxone 0.4 MG/ML INJ IVP PRN (15:43)
[2016-09-06] MEDS ORDERED: Insulin Regular, Human 100 UNIT/ML IV PRN (15:43)
[2016-09-06] MEDS ORDERED: Potassium Chloride 40 MEQ/200 ML BAG IVPB PRN (15:43)
[2016-09-06] MEDS ORDERED: Magnesium Sulfate 2 GM in D5% in Water 100 ML IVPB PRN (15:43)
[2016-09-06] MEDS ORDERED: *HR* Dextrose 50 % in Water (Syg) 50 ML SYRINGE IVP PRN (15:43)
[2016-09-06] MEDS ORDERED: Acetaminophen 325 MG TABLET PO PRN (15:43)
[2016-09-06] MEDS ORDERED: Acetaminophen 650 MG RECTAL SUPP RC PRN (15:43)
[2016-09-06] MEDS ORDERED: Calcium Chloride 1,000 MG in 0.9 % Sodium Chloride 100 ML IVPB PRN (15:43)
[2016-09-06] MEDS ORDERED: 0.9 % Sodium Chloride w KCl 20 MEQ/1,000 ML MLS IVC SCH (15:45)
[2016-09-06] MEDS ORDERED: niCARdipine 40 MG/200 ML MLS IVC SCH (15:45)
[2016-09-06] MEDS ORDERED: Insulin Human Regular 100 UNIT in 0.9 % Sodium Chloride 100 ML IV SCH (15:45)
[2016-09-06 16:32] LABS: ABG Base Excess 4.7 mEq/L (-2.0 to 3.0)
[2016-09-06 16:34] LABS: ABG PH 7.45 pH Units (7.32-7.45)
[2016-09-06 16:35] LABS: ABG HCO3 29.2 mEQ/L (21-27); ABG Oxygen Saturation 100 % (95-98); ABG PCO2 42 mmHg (35-45); ABG PO2 177 mmHg (85-104); ABG TCO2 30.5 mEq/L (20-26); Basophils # 0.1 K/mcL (0.0-0.2); Basophils % 0.4 %; Blood Gas FiO2 50 %; Eosinophils # 0.4 K/mcL (0.0-0.6); Eosinophils % 3.3 %; Hematocrit 29.9 % (37.5-50.1); Immature Granulocytes % 0.9 % (0-4); Lymphocytes # 1.8 K/mcL (0.6-4.6); Lymphocytes % 14.3 %; Mean Corpuscular HGB Conc 34.1 g/dL (31.6-35.5); Mean Corpuscular Hemoglobin 28.4 pg (28.0-33.3); Mean Corpuscular Volume 83.3 fL (83.0-100.0); Monocytes # 0.8 K/mcL (0.0-1.3); Platelet Count 134 K/mcL (140-400); Red Blood Count 3.59 M/mcL (4.19-5.50); Red Cell Distribution Width 12.9 % (11.5-14.5); Segmented Neutrophils % 75.1 %
[2016-09-06 16:39] LABS: Hemoglobin 10.2 g/dL (12.9-16.9); Neutrophils # 9.5 K/mcL (1.6-8.9)
[2016-09-06] MEDS: Ketorolac 15 MG/ML VIAL IVP SCH ×2 (16:39→23:18)
[2016-09-06] MEDS: Metoclopramide 10 MG/2 ML VIAL IVP SCH ×2 (16:39→23:18)
[2016-09-06 16:44] LABS: BUN/Creatinine Ratio 13 (6-26); Blood Urea Nitrogen 9 mg/dL (8-26); Carbon Dioxide 24 mEq/L (19-29); Chloride 108 mEq/L (98-109); Glucose 128 mg/dL (70-99); Magnesium 2.3 mg/dL (1.6-2.6); Osmolality,Calculated 286 (280-300); Potassium 3.7 mEq/L (3.5-4.5); Sodium 138 mEq/L (136-145); eGFR For African Americans > 60 (> 60); eGFR For Non-African Americans > 60 (> 60)
[2016-09-06 16:45] LABS: Calcium 7.9 mg/dL (8.6-10.8)
[2016-09-06 16:50] LABS: INR 1.6
[2016-09-06 16:53] LABS: Activated Partial Thrombo Time 28.8 Seconds (26.0-36.0)
[2016-09-06 16:56] LABS: Prothrombin Time 17.2 Seconds (9.4-12.1)
[2016-09-06] MEDS: Pantoprazole 40 MG VIAL IVP SCH (17:00)
[2016-09-06] MEDS: Nitroglycerin 25 MG/250 ML INFUS..BTL IVC SCH ×2 (17:02→23:18)
[2016-09-06] MEDS ORDERED: 0.9 % Sodium Chloride 250 ML ONE (19:12)
[2016-09-06] MEDS: Norepinephrine 4 MG in D5% in Water 250 ML IVC SCH ×2 (20:01→21:17)
[2016-09-06 20:10] LABS: ABG Base Excess 4.3 mEq/L (-2.0 to 3.0); ABG HCO3 29.2 mEQ/L (21-27); ABG Oxygen Saturation 96 % (95-98); ABG PCO2 44 mmHg (35-45); ABG PH 7.43 pH Units (7.32-7.45); ABG PO2 82 mmHg (85-104); ABG TCO2 30.6 mEq/L (20-26)
[2016-09-06 20:11] LABS: Blood Gas FiO2 30 %
[2016-09-06] MEDS: ceFAZolin 2,000 MG in D5% in Water 100 ML IVPB SCH (20:33)
[2016-09-06] MEDS ORDERED: Chlorhexidine Rinse 15 ML MOUTHWASH MM SCH (21:00)
[2016-09-06 23:39] LABS: ABG Base Excess 4.5 mEq/L (-2.0 to 3.0); ABG HCO3 29.8 mEQ/L (21-27); ABG Oxygen Saturation 96 % (95-98); ABG PCO2 47 mmHg (35-45); ABG PH 7.41 pH Units (7.32-7.45); ABG PO2 79 mmHg (85-104); ABG TCO2 31.2 mEq/L (20-26); Blood Gas FiO2 30 %
[2016-09-07] MEDS: *HR* Morphine 2 MG/ML SYRINGE IVP PRN ×2 (00:05→05:17)
[2016-09-07 01:31] LABS: ABG Base Excess 4.4 mEq/L (-2.0 to 3.0); ABG HCO3 30.6 mEQ/L (21-27); ABG Oxygen Saturation 98 % (95-98); ABG PCO2 53 mmHg (35-45); ABG PH 7.37 pH Units (7.32-7.45); ABG PO2 112 mmHg (85-104); ABG TCO2 32.2 mEq/L (20-26)
[2016-09-07 01:32] LABS: Blood Gas FiO2 32 %; Blood Gas Liter Flow 3 L/MIN
[2016-09-07] MEDS: *HR* OxyCODONE/APAP 5/325 TABLET PO PRN ×4 (03:13→23:49)
[2016-09-07 04:14] LABS: Basophils # 0.1 K/mcL (0.0-0.2); Basophils % 0.5 %; Eosinophils # 0.2 K/mcL (0.0-0.6); Eosinophils % 1.4 %; Hemoglobin 11.1 g/dL (12.9-16.9); Immature Granulocytes % 0.5 % (0-4); Lymphocytes # 1.2 K/mcL (0.6-4.6); Lymphocytes % 10.1 %; Mean Corpuscular HGB Conc 33.6 g/dL (31.6-35.5); Mean Corpuscular Hemoglobin 28.5 pg (28.0-33.3); Mean Corpuscular Volume 84.8 fL (83.0-100.0); Mean Platelet Volume 10.2 fL (9.4-12.4); Monocytes # 1.5 K/mcL (0.0-1.3); Monocytes % 12.4 %; Platelet Count 171 K/mcL (140-400); Red Blood Count 3.89 M/mcL (4.19-5.50); Red Cell Distribution Width 13.2 % (11.5-14.5); Segmented Neutrophils % 75.1 %
[2016-09-07 04:20] LABS: INR 1.3; Prothrombin Time 14.2 Seconds (9.4-12.1)
[2016-09-07 04:22] LABS: Activated Partial Thrombo Time 32.1 Seconds (26.0-36.0)
[2016-09-07 04:23] LABS: BUN/Creatinine Ratio 13 (6-26); Blood Urea Nitrogen 11 mg/dL (8-26); Carbon Dioxide 26 mEq/L (19-29); Chloride 107 mEq/L (98-109); Glucose 131 mg/dL (70-99); Osmolality,Calculated 287 (280-300); Potassium 4.3 mEq/L (3.5-4.5); Sodium 138 mEq/L (136-145); eGFR For African Americans > 60 (> 60); eGFR For Non-African Americans > 60 (> 60)
[2016-09-07 04:26] LABS: Neutrophils # 8.9 K/mcL (1.6-8.9)
[2016-09-07] MEDS ORDERED: Acetaminophen IV 1,000 MG/100 ML INFUS..BTL IVPB STA (04:45)
[2016-09-07] MEDS: ceFAZolin 2,000 MG in D5% in Water 100 ML IVPB SCH (04:58)
[2016-09-07] MEDS: Ketorolac 15 MG/ML VIAL IVP SCH ×4 (05:17→23:49)
[2016-09-07] MEDS: Metoclopramide 10 MG/2 ML VIAL IVP SCH ×4 (05:17→23:49)
[2016-09-07] MEDS ORDERED: ceFAZolin 2,000 MG in D5% in Water (Mini-Bag+) 100 ML IVPB ONE (06:00)
[2016-09-07] MEDS: Insulin LISPRO 300 UNITS/3 ML VIAL SQ SCH ×3 (06:12→20:37)
--- NOTE | 2016-09-07 06:32 | Cardiothoracic Progress Note ---
Date of Encounter: 09/07/16 Time of Encounter: 06:30 - Assessment and plan (1) CAD (coronary artery disease) Current Visit: Yes Status: Acute The patient is covering well from his CABG1. He is extubated and breathing comfortably. The arterial line, Stevenson catheter, and [place] catheter removed. The patient will be transferred to the stepdown unit when a bed is available. The assessment and plan as outlined above was discussed with the patient and/or family members who expressed understanding and agreement. All questions were answered. Qualifiers: Coronary Disease-Associated Artery/Lesion type: [place] artery [place] vs. transplanted heart: [place] heart Associated angina: with other forms of angina Qualified Code(s): I25.118 - Atherosclerotic heart disease of [place] coronary artery with other forms of angina pectoris - Subjective Procedure(s) Performed: POD #1 S/P CABG2 Interval history: The patient remained hemodynamically stable overnight. He is extubated and breathing comfortably. He has no complaints. Vital Signs, Last 4 Hours Temp Pulse Resp BP Pulse Ox 09/07/16 05:58 99.2 F 95 18 110/53 95 09/07/16 04:45 99.8 F H 99 20 115/47 95 09/07/16 03:50 99.8 F H 97 20 135/61 96 09/07/16 03:45 19 98 09/07/16 02:59 99.8 F H 97 18 130/69 100 Oxgyen Flow Rate Oxygen Flow Rate (LPM) 2 Clinical Data, last 8 Hours Output, Chest Tube Drainage 20 Amount [Mediastinal #1] Output, Chest Tube Drainage 40 Amount [Mediastinal #1] Output, Chest Tube Drainage 20 Amount [Mediastinal #1] Output, Chest Tube Drainage 5 Amount [Mediastinal #1] Output, Chest Tube Drainage 15 Amount [Mediastinal #1] Output, Chest Tube Drainage 25 Amount [Mediastinal #1] Output, Chest Tube Drainage 2 Amount [Mediastinal #1] Output, Chest Tube Drainage 20 Amount [Mediastinal #1] Output, Chest Tube Drainage 5 Amount [Mediastinal #2] Output, Chest Tube Drainage 5 Amount [Mediastinal #2] Output, Chest Tube Drainage 5 Amount [Mediastinal #2] Output, Chest Tube Drainage 35 Amount [Mediastinal #2] Output, Chest Tube Drainage 10 Amount [Mediastinal #2] Output, Chest Tube Drainage 10 Amount [Mediastinal #2] Output, Chest Tube Drainage 0 Amount [Mediastinal #2] Output, Chest Tube Drainage 5 Amount [Mediastinal #2] Weight 09/05/16 09/06/16 09/07/16 23:59 23:59 23:59 Weight 95.3 kg 94.6 kg - Physical Examination General: Conversant, No Apparent Distress Neck: No JVD, Normal carotid pulses Cardiac: Reg Rate and Rhythm, Normal S1 and S2, No Murmur Incision: No signs of infection, Dry/intact dressing Sternum: Stable Chest tubes: Minimal drainage, Other (No air leak.) Lungs: Normal Breath Sounds, No Wheeze, Rales, Rhonchi Neuro: Alert and responsive, No focal deficits noted Vascular: Normal capillary refill Musculoskeletal: No Chest Wall Tenderness Extremities: No Clubbing, No Cyanosis, No Edema, Normal Pulses - Labs 09/07/16 03:44 09/07/16 03:44 Lab Results, Last 24 hours 09/06/16 09/06/16 09/06/16 16:20 16:20 16:20 WBC 12.6 H D Hgb 10.2 L D Hct 29.9 L Plt Count 134 L D INR 1.6 APTT 28.8 Sodium 138 Potassium 3.7 Chloride 108 Carbon Dioxide 24 BUN 9 Creatinine 0.71 L Glucose 128 H Calcium 7.9 L D Magnesium 2.3 09/06/16 09/07/16 09/07/16 21:49 03:44 03:44 WBC 11.8 H Hgb 11.1 L Hct 33.0 L Plt Count 171 INR 1.3 APTT 32.1 Sodium Potassium 4.0 Chloride Carbon Dioxide BUN Creatinine Glucose Calcium Magnesium 09/07/16 03:44 WBC Hgb Hct Plt Count INR APTT Sodium 138 Potassium 4.3 Chloride 107 Carbon Dioxide 26 BUN 11 Creatinine 0.84 Glucose 131 H Calcium 8.0 L Magnesium 2.0 - Imaging Chest Xray: image reviewed (No pneumothorax. Minimal atelectasis/infiltrates.) - VTE Documentation of Mechanical Device: Graduated compression elastic hosiery Consult Discharge Plan - Plan Referrals: Erica Blackburn, PUBLIC HEALTH OUTREACH WORKER [Primary Care Provider] -
[2016-09-07 07:51] LABS: ABG HCO3 29.3 mEQ/L (21-27); ABG PCO2 53 mmHg (35-45); ABG PH 7.35 pH Units (7.32-7.45); ABG PO2 422 mmHg (85-104)
[2016-09-07 07:52] LABS: ABG Base Excess 2.6 mEq/L (-2.0 to 3.0); ABG Glucose 122 mg/dL (60-95); ABG Hematocrit 43 % (35-51); ABG Ionized Calcium 1.13 mmol/L (1.15-1.35); ABG Oxygen Saturation 100 % (95-98); ABG TCO2 30.9 mEq/L (20-26)
[2016-09-07 07:54] LABS: ABG Base Excess -0.4 mEq/L (-2.0 to 3.0); ABG Glucose 127 mg/dL (60-95); ABG HCO3 24.1 mEQ/L (21-27); ABG Hematocrit 30 % (35-51); ABG Oxygen Saturation 99 % (95-98); ABG PCO2 38 mmHg (35-45); ABG PH 7.41 pH Units (7.32-7.45); ABG PO2 124 mmHg (85-104); ABG TCO2 25.3 mEq/L (20-26)
[2016-09-07 07:56] LABS: ABG HCO3 27.2 mEQ/L (21-27); ABG PCO2 41 mmHg (35-45); ABG PH 7.43 pH Units (7.32-7.45); ABG PO2 331 mmHg (85-104)
[2016-09-07 07:57] LABS: ABG Base Excess 2.6 mEq/L (-2.0 to 3.0); ABG Glucose 181 mg/dL (60-95); ABG Hematocrit 23 % (35-51); ABG Ionized Calcium 0.94 mmol/L (1.15-1.35); ABG Oxygen Saturation 100 % (95-98); ABG TCO2 28.5 mEq/L (20-26)
[2016-09-07 08:00] LABS: ABG Base Excess 2.9 mEq/L (-2.0 to 3.0); ABG Glucose 175 mg/dL (60-95); ABG HCO3 27.1 mEQ/L (21-27); ABG Hematocrit 23 % (35-51); ABG Oxygen Saturation 100 % (95-98); ABG PCO2 39 mmHg (35-45); ABG PH 7.45 pH Units (7.32-7.45); ABG PO2 228 mmHg (85-104); ABG TCO2 28.3 mEq/L (20-26)
[2016-09-07 08:01] LABS: ABG Ionized Calcium 0.99 mmol/L (1.15-1.35)
[2016-09-07 08:04] LABS: ABG PCO2 45 mmHg (35-45); ABG PO2 93 mmHg (85-104)
[2016-09-07 08:05] LABS: ABG Base Excess 2.8 mEq/L (-2.0 to 3.0); ABG Glucose 135 mg/dL (60-95); ABG HCO3 27.9 mEQ/L (21-27); ABG Hematocrit 24 % (35-51); ABG Oxygen Saturation 97 % (95-98); ABG TCO2 29.3 mEq/L (20-26)
[2016-09-07 08:06] LABS: ABG Ionized Calcium 1.24 mmol/L (1.15-1.35)
[2016-09-07] MEDS: Chlorhexidine Rinse 15 ML MOUTHWASH MM SCH ×2 (08:09→20:24)
[2016-09-07] MEDS: (Pravastatin Sodium [Pravachol] 80 MG) PO SCH (08:10)
[2016-09-07] MEDS: Pantoprazole 40 MG VIAL IVP SCH (08:11)
[2016-09-07] MEDS ORDERED: Aspirin Enteric Coated 81 MG Tablet PO SCH (09:00)
[2016-09-07] MEDS ORDERED: Furosemide 20 MG/2 ML VIAL IVP SCH (09:00)
--- NOTE | 2016-09-07 11:21 | Electrocardiograph Report ---
[facility] Test Date: 2016-09-06 Pat Name: Milan Dejesus Department: 109 Room: 06 Gender: M Patient Support Representative: MICHEAL : 1965 Requested By: Kassie Ovalle Order Number: [id number] Reading MD: Niraj Guo MD Measurements Intervals [place] Rate: 89 P: 30 [place]: 156 QRS: -31 QRSD: 103 T: 64 QT: 370 QTc: 416 Interpretive Statements SINUS RHYTHM LEFT AXIS DEVIATION LOW QRS VOLTAGE IN PRECORDIAL LEADS Electronically Signed On 09-07-16 11:20:57 EST by Niraj Guo MD
[2016-09-07] MEDS: Nitroglycerin 25 MG/250 ML INFUS..BTL IVC SCH (12:09)
--- NOTE | 2016-09-07 13:54 | Anesthesia Evaluation Post Op ---
Date of Encounter: 09/07/16 Time of Encounter: 13:53 - Vital Signs Vital Signs: Selected Entries 09/07/16 12:00 09/07/16 13:00 Temperature 98.5 F Pulse Rate 91 Respiratory Rate 16 Blood Pressure 106/54 O2 Sat by Pulse Oximetry 97 Oxygen Flow Rate (LPM) 2 - Lungs Lungs: Clear Ascult./Percussion - Airway Airway: Non-obstructed - Cardiovascular Regular Rate - Mental Status Mental Status: Alert & Oriented, Answers Appropriately - Pain Pain Scale: 1 Pain Scale used: Numeric (1 - 10) - Nausea Vomiting Nausea Vomiting: Not Present - Hydration Hydration: Tolerates oral liquids, Able to void, Unable to void Notes: 09/07/16 13:53 No apparent anesthesia side effects - Discharge PostOp Status: Transfer Patient to floor
[2016-09-07] MEDS ORDERED: Ondansetron 4 MG/2 ML VIAL IVP PRN (16:32)
[2016-09-07] MEDS ORDERED: D5% in Water 1,000 ML IV PRN (16:32)
[2016-09-07] MEDS ORDERED: *HR* Morphine 2 MG/ML SYRINGE IVP PRN ×2 (16:32)
[2016-09-07] MEDS ORDERED: Insulin Human Regular 100 UNIT in 0.9 % Sodium Chloride 100 ML IV SCH (16:32)
[2016-09-07] MEDS ORDERED: Acetaminophen 325 MG TABLET PO PRN (16:32)
[2016-09-07] MEDS ORDERED: Insulin Regular, Human 100 UNIT/ML IV PRN (16:32)
[2016-09-07] MEDS ORDERED: Naloxone 0.4 MG/ML INJ IVP PRN (16:32)
[2016-09-07] MEDS ORDERED: *HR* Dextrose 50 % in Water (Syg) 50 ML SYRINGE IVP PRN ×3 (16:32)
[2016-09-07] MEDS ORDERED: Dextrose Gel 15 GM PO PRN ×4 (16:32)
[2016-09-07] MEDS: *HR* Heparin 5,000 UNIT/ML VIAL SQ SCH (16:53)
[2016-09-07] MEDS: Furosemide 20 MG/2 ML VIAL IVP SCH (20:24)
[2016-09-08] MEDS: Ketorolac 15 MG/ML VIAL IVP SCH ×4 (05:54→23:26)
[2016-09-08] MEDS: *HR* Heparin 5,000 UNIT/ML VIAL SQ SCH ×2 (05:54→17:23)
[2016-09-08] MEDS: Metoclopramide 10 MG/2 ML VIAL IVP SCH ×4 (06:42→23:26)
[2016-09-08] MEDS: Chlorhexidine Rinse 15 ML MOUTHWASH MM SCH ×2 (08:14→21:23)
[2016-09-08] MEDS: Furosemide 20 MG/2 ML VIAL IVP SCH ×2 (08:15→21:23)
[2016-09-08] MEDS: Aspirin Enteric Coated 81 MG Tablet PO SCH (08:15)
[2016-09-08] MEDS: *HR* OxyCODONE/APAP 5/325 TABLET PO PRN ×3 (08:15→23:26)
[2016-09-08] MEDS: Pantoprazole 40 MG VIAL IVP SCH (08:15)
[2016-09-08] MEDS: Insulin LISPRO 300 UNITS/3 ML VIAL SQ SCH ×4 (08:34→21:27)
[2016-09-08] MEDS: Patient Taking Own Medication 1 EACH PO SCH (08:40)
--- NOTE | 2016-09-08 09:31 | Cardiothoracic Progress Note ---
Date of Encounter: 09/08/16 Time of Encounter: 09:31 - Assessment and plan (1) CAD (coronary artery disease) Current Visit: Yes Status: Acute The assessment and plan as outlined above was discussed with the patient and/or family members who expressed understanding and agreement. All questions were answered. We will check a stat portable chest x-ray. We will ambulate the patient. Hopefully, he can be discharged in 1-2 days. Qualifiers: Coronary Disease-Associated Artery/Lesion type: [place] artery [place] vs. transplanted heart: [place] heart Associated angina: with other forms of angina Qualified Code(s): I25.118 - Atherosclerotic heart disease of [place] coronary artery with other forms of angina pectoris - Subjective Interval history: The patient has no complaints. Vital Signs, Last 4 Hours Temp Pulse Resp BP Pulse Ox 09/08/16 07:58 16 94 L 09/08/16 07:13 98.6 F 99 16 119/70 94 L Oxgyen Flow Rate Oxygen Flow Rate (LPM) 2 Clinical Data, last 8 Hours Output, Chest Tube Drainage 0 Amount [Mediastinal #1] Output, Chest Tube Drainage 0 Amount [Mediastinal #1] Output, Chest Tube Drainage 10 Amount [Mediastinal #1] Output, Chest Tube Drainage 0 Amount [Mediastinal #2] Output, Chest Tube Drainage 0 Amount [Mediastinal #2] Output, Chest Tube Drainage 20 Amount [Mediastinal #2] Output, Urine Amount 300 Output, Urine Amount 150 Output, Urine Amount 150 Weight 09/06/16 09/07/16 09/08/16 23:59 23:59 23:59 Weight 94.6 kg Lungs are clear to percussion and auscultation. Heart is in a normal sinus rhythm. All incisions are healing well without signs of infection and the sternum is stable. Chest tubes have minimal drainage and no air leak. The chest tubes and pacing wires were removed. - Labs 09/07/16 03:44 09/07/16 03:44 - Imaging Chest Xray: report reviewed, image reviewed - VTE Documentation of Mechanical Device: Graduated compression elastic hosiery Consult Discharge Plan - Plan Referrals: Erica Blackburn, LEARN TO SWIM INSTRUCTOR [Primary Care Provider] -
[2016-09-09 04:39] LABS: BUN/Creatinine Ratio 21 (6-26); Blood Urea Nitrogen 16 mg/dL (8-26); Calcium 8.3 mg/dL (8.6-10.8); Carbon Dioxide 30 mEq/L (19-29); Chloride 99 mEq/L (98-109); Glucose 150 mg/dL (70-99); Osmolality,Calculated 286 (280-300); Potassium 3.7 mEq/L (3.5-4.5); Sodium 136 mEq/L (136-145); eGFR For African Americans > 60 (> 60); eGFR For Non-African Americans > 60 (> 60)
[2016-09-09] MEDS: Ketorolac 15 MG/ML VIAL IVP SCH ×3 (06:16→17:43)
[2016-09-09] MEDS: *HR* Heparin 5,000 UNIT/ML VIAL SQ SCH ×2 (06:16→17:43)
[2016-09-09] MEDS: Metoclopramide 10 MG/2 ML VIAL IVP SCH ×3 (06:16→17:43)
[2016-09-09 06:54] LABS: Basophils % 0.4 %; Eosinophils # 0.4 K/mcL (0.0-0.6); Eosinophils % 4.5 %; Hematocrit 29.2 % (37.5-50.1); Immature Granulocytes % 0.4 % (0-4); Lymphocytes # 0.9 K/mcL (0.6-4.6); Lymphocytes % 10.1 %; Mean Corpuscular HGB Conc 33.2 g/dL (31.6-35.5); Mean Corpuscular Hemoglobin 28.4 pg (28.0-33.3); Mean Platelet Volume 10.3 fL (9.4-12.4); Monocytes % 11.9 %; Neutrophils # 6.2 K/mcL (1.6-8.9); Platelet Count 159 K/mcL (140-400); Red Blood Count 3.42 M/mcL (4.19-5.50); Red Cell Distribution Width 13.2 % (11.5-14.5); Segmented Neutrophils % 72.7 %
[2016-09-09 07:04] LABS: Hemoglobin 9.7 g/dL (12.9-16.9); Mean Corpuscular Volume 85.4 fL (83.0-100.0)
[2016-09-09] MEDS: Pantoprazole 40 MG VIAL IVP SCH (08:05)
[2016-09-09] MEDS: *HR* OxyCODONE/APAP 5/325 TABLET PO PRN ×2 (08:05→17:46)
[2016-09-09] MEDS: Chlorhexidine Rinse 15 ML MOUTHWASH MM SCH ×2 (08:05→20:29)
[2016-09-09] MEDS: Furosemide 20 MG/2 ML VIAL IVP SCH ×2 (08:05→20:29)
[2016-09-09] MEDS: Aspirin Enteric Coated 81 MG Tablet PO SCH (08:06)
[2016-09-09] MEDS: Insulin LISPRO 300 UNITS/3 ML VIAL SQ SCH ×4 (08:08→21:51)
--- NOTE | 2016-09-09 11:09 | Cardiothoracic Progress Note ---
Date of Encounter: 09/09/16 Time of Encounter: 11:07 - Assessment and plan (1) CAD (coronary artery disease) Current Visit: Yes Status: Acute Hopefully, the patient can be discharged tomorrow or Monday. I will start the patient on Glucophage because of a hemoglobin A1c over 7. Further follow-up will be with his primary care doctor. Qualifiers: Coronary Disease-Associated Artery/Lesion type: [place] artery [place] vs. transplanted heart: [place] heart Associated angina: with other forms of angina Qualified Code(s): I25.118 - Atherosclerotic heart disease of [place] coronary artery with other forms of angina pectoris - Subjective Interval history: The patient is ambulating without difficulty and has no complaints. Vital Signs, Last 4 Hours Pulse 09/09/16 09:12 90 Oxgyen Flow Rate Oxygen Flow Rate (LPM) 2 Clinical Data, last 8 Hours Output, Urine Amount 200 Output, Urine Amount 200 Output, Urine Amount 100 Weight 09/07/16 09/08/16 09/09/16 23:59 23:59 23:59 Weight 95.4 kg Lungs are clear to percussion and auscultation. Heart is in a normal sinus rhythm. All incisions are healing well without signs of infection and the sternum is stable. Chest x-ray after chest tube removal reveals no pneumothorax. - Labs 09/09/16 06:25 09/09/16 04:14 Lab Results, Last 24 hours 09/09/16 09/09/16 04:14 06:25 WBC 8.5 Hgb 9.7 L Hct 29.2 L Plt Count 159 Sodium 136 Potassium 3.7 Chloride 99 Carbon Dioxide 30 H BUN 16 Creatinine 0.78 Glucose 150 H Calcium 8.3 L - VTE Documentation of Mechanical Device: Graduated compression elastic hosiery Consult Discharge Plan - Plan Referrals: Kassie Ovalle MD [Partnered Physician] - 10/06/16 1:00 pm Eva Manning CNP [Partnered Physician] - 09/21/16 8:00 am Erica Blackburn CNP [Primary Care Provider] -
[2016-09-09] MEDS: Patient Taking Own Medication 1 EACH PO SCH (11:23)
[2016-09-10] MEDS: Ketorolac 15 MG/ML VIAL IVP SCH ×3 (00:48→12:58)
[2016-09-10] MEDS: *HR* Heparin 5,000 UNIT/ML VIAL SQ SCH (05:52)
[2016-09-10] MEDS: Chlorhexidine Rinse 15 ML MOUTHWASH MM SCH (07:59)
[2016-09-10] MEDS: Aspirin Enteric Coated 81 MG Tablet PO SCH (07:59)
[2016-09-10] MEDS: Pantoprazole 40 MG VIAL IVP SCH (07:59)
[2016-09-10] MEDS: Insulin LISPRO 300 UNITS/3 ML VIAL SQ SCH ×2 (08:00→12:59)
[2016-09-10] MEDS ORDERED: *HR* Metformin 500 MG TABLET PO SCH (08:00)
[2016-09-10] MEDS: Patient Taking Own Medication 1 EACH PO SCH (08:01)
--- NOTE | 2016-09-10 10:24 | Discharge Summary ---
Date of Encounter: 09/10/16 Time of Encounter: 10:19 - Discharge Diagnosis (1) CAD (coronary artery disease) Priority: Primary Status: Acute Qualifiers: Coronary Disease-Associated Artery/Lesion type: [place] artery [place] vs. transplanted heart: [place] heart Associated angina: with other forms of angina Qualified Code(s): I25.118 - Atherosclerotic heart disease of [place] coronary artery with other forms of angina pectoris - Discharge Medications Prescriptions: OxyCODONE/APAP 5/325 [Percocet 5/325 MG] 1 each PO Q4HR PRN #30 tablet PRN Reason: Severe Pain Metformin [Glucophage] 500 mg PO 0800 #30 tablet Home Medications: Aspirin 81 mg PO DAILY 03/24/16 [History] [place]-3/Dha/Epa/Fish Oil [Fish Oil Dr 500 mg Softgel] 1,000 mg PO BID 03/24/16 [ History] Omeprazole [PriLOSEC] 20 mg PO DAILY 03/24/16 [History] Pravastatin Sodium [Pravachol] 80 mg PO DAILY 03/24/16 [History] Isosorbide MONOnitrate (24 HR) [Imdur] 30 mg PO DAILY 09/02/16 [History] Meloxicam 15 mg PO DAILY 09/02/16 [History] Metoprolol XL (24 HR) Succ [Toprol Xl] 50 mg PO DAILY 09/02/16 [History] Multivitamin [Multivitamins] 1 each PO DAILY 09/02/16 [History] Metformin [Glucophage] 500 mg PO 0800 #30 tablet 09/10/16 [Rx] OxyCODONE/APAP 5/325 [Percocet 5/325 MG] 1 each PO Q4HR PRN #30 tablet 09/10/16 [Rx] Allergies/Adverse Reactions: Allergies atorvastatin [From Lipitor] Allergy (Verified 03/24/16 06:22) Joint Pain Iodinated Contrast Media - Oral and Allergy (Verified 03/24/16 06:22) Anaphylaxis Date of admission: 09/02/16 16:08 Primary care physician: Erica Blackburn Consults: 09/04/16 13:20 Consult to Banquet Set Up Person [CONS] Routine Comment: Consult to Nutrition [CONS] Routine Comment: newly diagnosed DM Consulting Provider: NUTRITION Reason for Dietary Consult: Diet Education 09/06/16 15:43 Consult to Cardiac Rehabilitation-Phase1 [CONS] Routine Comment: Reason for Consult: Post open heart Call Completed: Yes 09/09/16 11:43 Consult to Nursing Support Worker [CONS] Routine Reason for SW Consult: HOME OXYGEN 09/02/16 12:01 Consult to Cardiothoracic Surgery [CONS] Routine Consulting Provider: Cardiothoracic Surgery Yoana Reason for Consult: Severe 3 vessels CAD, Call Completed: Yes 09/03/16 11:37 Consult to Hospitalist [CONS] Routine Consulting Provider: Hospitalist Adriel Reason for Consult: New diabetes diagnosis--management while inpt. Call Completed: No Procedure(s) Performed: September 06, 2015. Coronary artery bypass grafting 3, utilizing his left internal mammary artery. Discharging clinician: Ilir Bustos Anticipated date of discharge: 09/10/16 - Patient Status Disposition: Home, Self-Care Condition: Fair Functional capacity at discharge: independent ambulation Overall status at discharge: patient is progressing back to baseline - Discharge Instructions Follow Up With: Kassie Ovalle MD [Partnered Physician] - 10/06/16 1:00 pm Eva Manning CNP [Partnered Physician] - 09/21/16 8:00 am Erica Blackburn CNP [Primary Care Provider] - - Hospital Course Hospital course: Mr. Dejesus is a 51 year old male The patient is a 51-year-old gentleman who does have a history of hypertension and hypercholesterolemia. He has had stent placement in the past. He presented with a positive exercise stress test. Cardiac catheterization revealed triple- vessel disease. On September 06, 2016, my partner Dr. Ovalle took the patient to the operating room for coronary artery bypass grafting 3, utilizing his left internal mammary artery. The patient tolerated this procedure well. On September 07 he was transferred to the ICU to the floor. On September 08 his chest tubes and pacing wires were removed. Chest x-ray done after this revealed no pneumothorax. He did have a hemoglobin A1c of 7.9. He was started on Glucophage 500 mg by mouth daily. Diabetic teaching was done. At discharge he was given a glucometer and test strips. He also was discharged on home oxygen at 2 L. The patient did well and was discharged on September 10. At that time he was afebrile. Lungs were clear to percussion and auscultation. Heart was in a normal sinus rhythm. All incisions were healing well without signs of infection and the sternum was stable. Discharge medications are on the [employer] rec. They include Percocet for pain. He was given a one-week supply and he was postoperative. I did check the [place] automated Rx reporting system. Appropriate precautions were given. He was to return to his previous and regular diet. He was to avoid heavy lifting for a total of 3 months after surgery, but to walk as much as possible. He was to not drive for 1 month. He was to follow-up and see Dr. Ovalle in 4 weeks as directed. He was to follow-up with his primary care doctor as directed. He was to follow-up with his highway maintenance worker as directed. He was to call sooner for any difficulties. - Time Spent with Patient Total time spent providing and/or coordinating discharge services: Physical Examination Vital Signs, Last 4 Hours Temp Pulse Resp BP Pulse Ox 09/10/16 08:14 90 09/10/16 08:00 14 99 09/10/16 07:46 98.0 F 93 18 128/75 98 Open Heart Registry Aspirin Cont/Prescribed at DC: Yes Beta [place] Cont/Prescribed at DC: Yes Statin Cont/Prescribed at DC: Yes CARL/ARB Cont/Prescribed at DC: Not indicated - VTE Documentation of Mechanical Device: Graduated compression elastic hosiery
[2016-09-10 11:19] VITALS: BP 120/72
[2016-09-10] MEDS: *HR* OxyCODONE/APAP 5/325 TABLET PO PRN (12:57)
== END 2016-09-10 14:17 | disposition home or self-care (01) | DRG 234 ==
LOC: INVDIALAB 08:04 → ICNU 08:04 → 2NNU 14:45 → ICNU 09-06 15:12 → 2NNU 09-07 16:20
PROVIDERS: ADMIT Internal Medicine Cardiovascular Disease; ATTEND Thoracic Surgery (Cardiothoracic Vascular Surgery)

== ENCOUNTER 2020-09-24 09:34 | Inpatient (IN) ==
[2020-09-24] MEDS ORDERED: CeFAZolin Syr 2,000MG/20 ML 2,000 MG/20 ML SYRINGE IVPB ONE (09:50)
[2020-09-24] MEDS ORDERED: Ringers Solution, Lactated 1,000 ML IVC SCH ×2 (10:00→10:15)
[2020-09-24] MEDS ORDERED: *HR* OxyCODONE Immed Rel 5 MG TABLET PO PRN (10:09)
[2020-09-24] MEDS ORDERED: *HR* HYDROmorphone PF 0.5 MG/0.5 ML SYRINGE IVP PRN (10:09)
[2020-09-24] MEDS ORDERED: Ondansetron 4 MG/2 ML VIAL IVP PRN (10:09)
[2020-09-24] MEDS ORDERED: *HR* Propofol 200 MG/20 ML VIAL IVP ONE (11:23)
[2020-09-24] MEDS ORDERED: *HR* FentaNYL (PF) 100 MCG/2 ML VIAL ONE ×2 (11:23→15:04)
[2020-09-24] MEDS ORDERED: Ondansetron 4 MG/2 ML VIAL ONE (11:24)
[2020-09-24] MEDS ORDERED: Dexamethasone 4 MG/ML VIAL ONE ×2 (11:24→11:28)
[2020-09-24] MEDS ORDERED: Lidocaine -MPF 2% 2 ML VIAL ONE (11:24)
[2020-09-24] MEDS ORDERED: *HR* Rocuronium Bromide 50 MG/5 ML VIAL ONE ×2 (11:24→13:55)
[2020-09-24] MEDS ORDERED: *HR* Succinylcholine 200 MG/10 ML VIAL IVP ONE (11:24)
[2020-09-24] MEDS ORDERED: *HR* Midazolam HCl 2 MG/2 ML VIAL ONE (11:24)
[2020-09-24] MEDS ORDERED: Lidocaine HCL 4 ML Topical Solution (Laryng-O-Jet Kit Sterile Pak) TP ONE (11:30)
[2020-09-24] MEDS ORDERED: *HR* PHENYLEPHRINE 1,000 MCG/10 ML SYRINGE IVP ONE (13:06)
[2020-09-24] MEDS ORDERED: Acetaminophen IV 1,000 MG/100 ML BAG IVPB ONE (13:54)
[2020-09-24] MEDS ORDERED: Sugammadex Sodium 200 MG/2 ML VIAL IV ONE (14:28)
[2020-09-24] MEDS ORDERED: *HR* Phenylephrine 10 MG/ML VIAL ONE (14:43)
[2020-09-24] MEDS ORDERED: *HR* HYDROMORPHONE 2 MG/ML VIAL ONE (15:44)
[2020-09-24] MEDS ORDERED: Lacri-Lube 3.5 GM TUBE ONE (15:51)
[2020-09-24] MEDS ORDERED: Ketorolac 30 MG/ML VIAL ONE (16:10)
[2020-09-24] MEDS ORDERED: D5% in Water 1,000 ML IVC PRN (17:10)
[2020-09-24] MEDS ORDERED: Dextrose Gel 15 GM/37.5 ML TUBE PO PRN ×2 (17:10)
[2020-09-24] MEDS ORDERED: Naloxone 0.4 MG/ML INJ IVP PRN (17:10)
[2020-09-24] MEDS ORDERED: *HR* Dextrose 50 % in Water (Vial) 50 ML VIAL IVP PRN (17:10)
[2020-09-24] MEDS: Ketorolac 15 MG/ML VIAL IVP SCH ×2 (17:23→23:30)
[2020-09-24] MEDS: Insulin LISPRO 300 UNITS/3 ML VIAL SUBQ SCH ×2 (17:24→20:54)
[2020-09-24] MEDS: 0.9 % Sodium Chloride 1,000 ML IVC SCH (17:25)
[2020-09-24] MEDS: *HR* HYDROcodone/Acet 5/325 mg TABLET PO PRN ×2 (18:21→23:30)
[2020-09-24] MEDS: Ipratropium/Albuterol Neb 3 ML IH SCH ×2 (19:39→23:28)
[2020-09-24] MEDS: Budesonide/Formoterol 160/4.5 1 PUFF INH IH SCH (19:40)
[2020-09-24] MEDS: *HR* Heparin 5,000 UNIT/ML VIAL SQ SCH (21:06)
[2020-09-24] MEDS: Gabapentin 300 MG CAPSULE PO SCH (21:06)
[2020-09-24] MEDS: Sennosides/Docusate Sodium TABLET PO SCH (21:06)
[2020-09-24] MEDS: Famotidine 20 MG TABLET PO SCH (21:06)
[2020-09-25 02:12] LABS: Hematocrit 42.9 % (37.5-50.1); Hemoglobin 13.4 g/dL (12.9-16.9); Mean Corpuscular HGB Conc 31.2 g/dL (31.6-35.5); Mean Corpuscular Hemoglobin 27.3 pg (28.0-33.3); Mean Corpuscular Volume 87.4 fL (83.0-100.0); Mean Platelet Volume 10.3 fL (9.4-12.4); Platelet Count 248 K/mcL (140-400); Red Blood Count 4.91 M/mcL (4.19-5.50); White Blood Count 10.1 K/mcL (4.3-11.1)
[2020-09-25 02:29] LABS: % Iron Saturation 8 % (20-55); BUN/Creatinine Ratio 24 (6-26); Blood Urea Nitrogen 21 mg/dL (6-20); Calcium 8.3 mg/dL (8.6-10.3); Carbon Dioxide 24 mEq/L (23-29); Chloride 102 mEq/L (98-107); Glucose 208 mg/dL (70-105); Iron 26 mcg/dL (65-175); Magnesium 1.8 mg/dL (1.6-2.6); Osmolality,Calculated 291 (280-300); Potassium 4.6 mEq/L (3.5-5.1); Sodium 136 mEq/L (136-145); Transferrin 239 mg/dL (203-362); eGFR For African Americans > 60 (> 60); eGFR For Non-African Americans > 60 (> 60)
[2020-09-25] MEDS: Ipratropium/Albuterol Neb 3 ML IH SCH ×6 (03:44→23:42)
[2020-09-25] MEDS: *HR* Heparin 5,000 UNIT/ML VIAL SQ SCH ×3 (05:20→20:57)
[2020-09-25] MEDS: Ketorolac 15 MG/ML VIAL IVP SCH ×4 (05:20→23:47)
[2020-09-25] MEDS: *HR* HYDROcodone/Acet 5/325 mg TABLET PO PRN ×3 (05:21→16:59)
[2020-09-25] MEDS: 0.9 % Sodium Chloride 1,000 ML IVC SCH (06:55)
[2020-09-25] MEDS: Budesonide/Formoterol 160/4.5 1 PUFF INH IH SCH ×2 (07:59→19:29)
[2020-09-25] MEDS: Gabapentin 300 MG CAPSULE PO SCH ×3 (08:28→20:57)
[2020-09-25] MEDS: *HR* Metformin 500 MG TABLET PO SCH (08:28)
[2020-09-25] MEDS: (Leflunomide 20 MG) PO SCH (08:29)
[2020-09-25] MEDS: Aspirin 81 MG TAB.CHEW PO SCH (08:29)
[2020-09-25] MEDS: Famotidine 20 MG TABLET PO SCH ×2 (08:29→20:57)
[2020-09-25] MEDS: (Pravastatin Sodium [Pravachol] 80 MG) PO SCH (08:29)
[2020-09-25] MEDS: Sennosides/Docusate Sodium TABLET PO SCH ×2 (08:29→20:57)
[2020-09-25] MEDS: Metoprolol XL (24 HR) Succ 50 MG TAB.ER.24H PO SCH (08:29)
[2020-09-25] MEDS: (Ezetimibe [Zetia] 10 MG) PO SCH (08:30)
[2020-09-25] MEDS: (Dapagliflozin Propanediol [Farxiga] 10 MG) PO SCH (08:30)
[2020-09-25] MEDS: Insulin LISPRO 300 UNITS/3 ML VIAL SUBQ SCH ×4 (08:32→20:57)
[2020-09-26] MEDS: Ipratropium/Albuterol Neb 3 ML IH SCH ×3 (03:43→11:55)
[2020-09-26] MEDS: Ketorolac 15 MG/ML VIAL IVP SCH ×2 (05:45→11:26)
[2020-09-26] MEDS: *HR* Heparin 5,000 UNIT/ML VIAL SQ SCH (05:45)
[2020-09-26] MEDS: Famotidine 20 MG TABLET PO SCH (07:53)
[2020-09-26] MEDS: Sennosides/Docusate Sodium TABLET PO SCH (07:53)
[2020-09-26] MEDS: *HR* Metformin 500 MG TABLET PO SCH (07:53)
[2020-09-26] MEDS: Aspirin 81 MG TAB.CHEW PO SCH (07:53)
[2020-09-26] MEDS: *HR* HYDROcodone/Acet 5/325 mg TABLET PO PRN (07:53)
[2020-09-26] MEDS: Metoprolol XL (24 HR) Succ 50 MG TAB.ER.24H PO SCH (07:54)
[2020-09-26] MEDS: Gabapentin 300 MG CAPSULE PO SCH (07:54)
[2020-09-26] MEDS: Insulin LISPRO 300 UNITS/3 ML VIAL SUBQ SCH ×2 (07:58→11:27)
[2020-09-26] MEDS: (Dapagliflozin Propanediol [Farxiga] 10 MG) PO SCH (08:00)
[2020-09-26] MEDS: (Leflunomide 20 MG) PO SCH (08:00)
[2020-09-26] MEDS: (Pravastatin Sodium [Pravachol] 80 MG) PO SCH (08:00)
[2020-09-26] MEDS: (Ezetimibe [Zetia] 10 MG) PO SCH (08:00)
[2020-09-26] MEDS: Budesonide/Formoterol 160/4.5 1 PUFF INH IH SCH (10:03)
[2020-09-26 11:22] VITALS: BP 109/66
== END 2020-09-26 13:30 | disposition home or self-care (01) | DRG 165 ==
LOC: SAMDAY 09:34 → 2NNU 17:06
PROVIDERS: ADMIT Thoracic Surgery (Cardiothoracic Vascular Surgery); ATTEND Thoracic Surgery (Cardiothoracic Vascular Surgery)